=== PATIENT | male | born 1990 | race Caucasian/White ===

== ENCOUNTER 2019-12-01 11:23 | Inpatient (IN) | payer SELFPAY ==
[~2019-12-01] VITALS: Ht 188 cm; Wt 81.9 kg
[2019-12-01] MEDS ORDERED: IV NORMAL SALINE 1000ML BAG 1,000 ML IV SCH (11:30)
--- NOTE | 2019-12-01 11:32 | PHYS DOC ---
Past Medical History Past Medical History bipolar, brain glioma Smoking Status: Current Every Day Smoker Drug Use: None (IN RECOVERY FOR 2 YEARS) General Adult EDM: Chief Complaint: COMBATIVE, AGITATED HPI: HPI: Patient is a 29 year old male who arrives via EMS with a chief complaint of combativeness. Patient was causing a disturbance outside of the [employer] and was in police custody and became acting erratic and combative. Patient had a break in his hand. Patient had to be restrained by police and put in handcuffs. History and physical are limited to due to altered mental status. Patient is oriented x3 but has a very bizarre affect and will answer questions appropriately and is agitated. Patient was tased with a lakia in the right buttocks that was removed prior to arrival. Review of Systems: Review of Systems: Constitutional: Denies fever or chills. [] Eyes: Denies change in visual acuity. [] HENT: Denies nasal congestion or sore throat. [] Respiratory: Denies cough or shortness of breath. [] Cardiovascular: Denies chest pain or edema. [] GI: Denies abdominal pain, nausea, vomiting, bloody stools or diarrhea. [] : Denies dysuria. [] Musculoskeletal: Complains of diffuse myalgias Integument: Denies rash. [] Neurologic: Denies headache, focal weakness or sensory changes. [] Lymphatic: Denies swollen glands. [] Psychiatric: Complains of anxiety and agitation Review of systems limited due to altered mental status and poor cooperation Heart Score: Risk Factors: Risk Factors: DM, Current or recent (<one month) smoker, HTN, HLP, family history of CAD, obesity. Risk Scores: Score 0 - 3: 2.5% MACE over next 6 weeks - Discharge Home Score 4 - 6: 20.3% MACE over next 6 weeks - Admit for Clinical Observation Score 7 - 10: 72.7% MACE over next 6 weeks - Early Invasive Strategies Physical Exam: PE: Constitutional: In handcuffs, agitated, diaphoretic HENT: Normocephalic, atraumatic, bilateral external ears normal, oropharynx moist, no oral exudates, nose normal. [] Eyes: Pupils 6 mm but reactive Neck: Normal range of motion, no tenderness, supple, no stridor. [] Cardiovascular: Tachycardic, peripheral pulses intact Lungs & Thorax: Bilateral breath sounds clear to auscultation [] Abdomen: soft, no tenderness, no masses, no pulsatile masses. [] Skin: Warm, dry, no erythema, no rash. [] Back: No tenderness, no CVA tenderness. [] Extremities: Scattered abrasions without significant bruising or swelling. Neurologic: Alert and oriented X 3, normal motor function, normal sensory function, no focal deficits noted. [] Psychologic: Agitated, poor insight, anxious Current Patient Data: Labs: Laboratory Tests Test 12/01/19 11:50 White Blood Count 6.9 x10^3/uL Red Blood Count 4.67 x10^6/uL Hemoglobin 15.3 g/dL Hematocrit 43.0 % Mean Corpuscular Volume 92 fL Mean Corpuscular Hemoglobin 33 pg Mean Corpuscular Hemoglobin Concent 36 g/dL Red Cell Distribution Width 13.0 % Platelet Count 239 x10^3/uL Neutrophils (%) (Auto) 58 % Lymphocytes (%) (Auto) 30 % Monocytes (%) (Auto) 10 % Eosinophils (%) (Auto) 2 % Basophils (%) (Auto) 1 % Neutrophils # (Auto) 4.0 x10^3/uL Lymphocytes # (Auto) 2.1 x10^3/uL Monocytes # (Auto) 0.7 x10^3/uL Eosinophils # (Auto) 0.1 x10^3/uL Basophils # (Auto) 0.0 x10^3/uL Sodium Level 143 mmol/L Potassium Level 3.7 mmol/L Chloride Level 103 mmol/L Carbon Dioxide Level 27 mmol/L Anion Gap 13 Blood Urea Nitrogen 17 mg/dL Creatinine 1.5 mg/dL Estimated GFR (Cockcroft-Gault) 55.0 BUN/Creatinine Ratio 11 Glucose Level 94 mg/dL Calcium Level 9.1 mg/dL Total Bilirubin 0.5 mg/dL Aspartate Amino Transf (AST/SGOT) 35 U/L Alanine Aminotransferase (ALT/SGPT) 24 U/L Alkaline Phosphatase 62 U/L Creatine Kinase 836 U/L Total Protein 7.9 g/dL Albumin 4.5 g/dL Albumin/Globulin Ratio 1.3 Salicylates Level 3.0 mg/dL Salicylate Last Dose Date Unknown Salicylate Last Dose Time Unknown Acetaminophen Level < 2 mcg/ml Acetaminophen Last Dose Date Unknown Acetaminophen Last Dose Time Unknown Ethyl Alcohol Level < 10 mg/dL Current Medications Medications (Trade) Dose Ordered Sig/Trinh Route PRN Reason Start Time Stop Time Status Last Admin Dose Admin Sodium Chloride 1,000 ml @ 1,000 mls/hr Q1H IV 12/01/19 11:30 12/01/19 12:29 DC 12/01/19 11:58 Haloperidol Lactate (Haldol Inj) 5 mg STK-MED ONCE .ROUTE 12/01/19 11:43 12/01/19 11:43 DC Lorazepam (Ativan Inj) 2 mg STK-MED ONCE .ROUTE 12/01/19 11:43 12/01/19 11:43 DC Diphenhydramine HCl (Benadryl) 50 mg 1X ONCE IM 12/01/19 11:45 12/01/19 12:08 DC 12/01/19 11:55 Lorazepam (Ativan Inj) 2 mg 1X ONCE IM 12/01/19 11:45 12/01/19 12:08 DC 12/01/19 11:55 Haloperidol Lactate (Haldol Inj) 5 mg 1X ONCE IM 12/01/19 11:45 12/01/19 12:08 DC 12/01/19 11:55 Diphenhydramine HCl (Benadryl) 50 mg STK-MED ONCE .ROUTE 12/01/19 11:43 12/01/19 11:44 DC Sodium Chloride 1,000 ml @ 1,000 mls/hr 1X ONCE IV 12/01/19 13:15 12/01/19 14:14 12/01/19 13:15 EKG: EKG: [] EKG interpreted by me normal sinus rhythm with a rate of 83 normal axis normal intervals normal ST segments Radiology/Procedures: Radiology/Procedures: [][facility] [address] [place], [place] [id number] IMAGING REPORT Signed PATIENT: DEVORA HERNANDEZ ACCOUNT: [id number] : 1990 LOCATION: ER AGE: 29 SEX: M EXAM STATUS: PRE ER ORD. PHYSICIAN: RAMU FORTUNE MD REASON: AMS PROCEDURE: CT HEAD WO CONTRAST CT HEAD WO CONTRAST History: Reason: AMS / Spl. Instructions: / History: Comparison: None. Technique: Noncontrast CT imaging was performed of the head. Exposure: One or more of the following individualized dose reduction techniques were utilized for this examination: 1. Automated exposure control 2. Adjustment of the mA and/or kV according to patient size 3. Use of iterative reconstruction technique. Findings: Wedge-shaped hypoattenuation within the left frontal lobe. No acute hemorrhage. No significant mass effect. No hydrocephalus. Imaged orbits are unremarkable. Imaged paranasal sinuses and mastoid air cells are clear. No acute calvarial fracture. Impression: 1. Left frontal lobe wedge-shaped hypoattenuation, may represent cytotoxic edema and related to subacute infarct although a component of vasogenic edema is possible. Recommend brain MRI with and without contrast to exclude underlying lesion. Electronically signed by: Meño Man DO (12/01/2019 1:00 PM) [id number] DICTATED and SIGNED BY: MEÑO MAN DO DATE: 12/01/19 1300 Course & Med Decision Making: Course & Med Decision Making Pertinent Labs and Imaging studies reviewed. (See chart for details) [1140 patient starting to escalate. Code alejo activated. Tried to verbally de- escalate without success. Patient will be medically treated for agitation and physically restrained.] Reassessed at 12:00. Patient resting calmly. After medication. Catheter was placed and placed in the bladder no urine output was obtained. Patient does have rhabdomyolysis. A second liter fluid is been given. Patient on reassessment was asked about his brain tumor. Patient says he has a glioma and is not getting treatment for it. When asked what was he says is in the left frontal area. This matches with the current head CT. I initially discussed with the psychiatric assessment team but I think the fact that patient is not making urine I think he needs IV fluids overnight. He may need MRI and neuro consult as well. Discussed the case with Dr. Lee who admit the patient. I discussed with the patient's mother Nitza at [phone] patient's condition and care. She states that she sees him every couple days and he has been deteriorating. He is got history of bipolar and schizoaffective disorder and thinks is been off his meds for couple days. She also states that he has had a glioma for several years and wants saw a doctor at [place] but is been behind on scans for last year or so. I informed him that we will be admitting him to the hospital medically and give him fluids and he may need a neuro consult and MRI before he is cleared for psychiatric admission. Ling Disclaimer: Ling Disclaimer: This electronic medical record was generated, in whole or in part, using a voice recognition dictation system. Departure Departure Impression: Primary Impression: Altered mental status Additional Impressions: Rhabdomyolysis Glioma of brain Agitation Disposition: ADMITTED INPATIENT Admitting Physician: VIKI ([facility]) Condition: GUARDED Justicifation of Admission Dx: Justifications for Admission: Justification of Admission Dx: Yes RAMU FORTUNE MD Dec 01, 2019 11:32
[2019-12-01] MEDS ORDERED: HALOPERIDOL LACTATE 5 MG/ML VIAL. ONE (11:43)
[2019-12-01] MEDS ORDERED: diphenhydrAMINE 50 MG/ML VIAL ONE (11:43)
[2019-12-01] MEDS ORDERED: diphenhydrAMINE 50 MG/ML VIAL IM ONE (11:45)
[2019-12-01] MEDS ORDERED: HALOPERIDOL LACTATE 5 MG/ML VIAL. IM ONE (11:45)
[2019-12-01 12:01] LABS: BASO % 1 % (0-3); EOS # 0.1 x10^3/uL (0.0-0.7); EOS % 2 % (0-3); HEMOGLOBIN 15.3 g/dL (13.0-17.5); LYMPH # 2.1 x10^3/uL (1.0-4.8); LYMPH % 30 % (24-48); MEAN CORPUSCULAR HEMOGLOBIN 33 pg (25-35); MEAN CORPUSCULAR HGB CONC 36 g/dL (31-37); MEAN CORPUSCULAR VOLUME 92 fL (79-100); MONO # 0.7 x10^3/uL (0.0-1.1); MONO % 10 % (0-9); NEUT % 58 % (31-73); PLATELET COUNT 239 x10^3/uL (140-400); RED BLOOD COUNT 4.67 x10^6/uL (4.30-5.70); WHITE BLOOD COUNT 6.9 x10^3/uL (4.0-11.0)
[2019-12-01 12:14] LABS: CALCIUM 9.1 mg/dL (8.5-10.1); CREATININE 1.5 mg/dL (0.7-1.3); POTASSIUM 3.7 mmol/L (3.5-5.1)
[2019-12-01 12:18] LABS: ALBUMIN 4.5 g/dL (3.4-5.0); ALBUMIN/GLOBULIN RATIO 1.3 (1.0-1.7); TOTAL BILIRUBIN 0.5 mg/dL (0.2-1.0); TOTAL PROTEIN 7.9 g/dL (6.4-8.2)
[2019-12-01 12:27] LABS: ACETAMIN < 2 mcg/ml (10-30)
[2019-12-01 12:28] LABS: ETHANOL < 10 mg/dL (0-10)
--- NOTE | 2019-12-01 13:04 | RAD ---
CT HEAD WO CONTRAST History: Reason: AMS / Spl. Instructions: / History: Comparison: None. Technique: Noncontrast CT imaging was performed of the head. Exposure: One or more of the following individualized dose reduction techniques were utilized for this examination: 1. Automated exposure control 2. Adjustment of the mA and/or kV according to patient size 3. Use of iterative reconstruction technique. Findings: Wedge-shaped hypoattenuation within the left frontal lobe. No acute hemorrhage. No significant mass effect. No hydrocephalus. Imaged orbits are unremarkable. Imaged paranasal sinuses and mastoid air cells are clear. No acute calvarial fracture. Impression: 1. Left frontal lobe wedge-shaped hypoattenuation, may represent cytotoxic edema and related to subacute infarct although a component of vasogenic edema is possible. Recommend brain MRI with and without contrast to exclude underlying lesion. Electronically signed by: Meño Man DO (12/01/2019 1:00 PM) [id number]
[2019-12-01] MEDS ORDERED: IV NORMAL SALINE 1000ML BAG 1,000 ML IV ONE (13:15)
--- NOTE | 2019-12-01 13:29 | PDOC1 ---
History and Physical Date of Admission Date of Admission DATE: 12/01/19 TIME: 13:27 Identification/Chief Complaint Chief Complaint SEEN I9N ER WITH chief complaint of combativeness. Patient was causing a disturbance outside of the [employer] in police custody and became acting erratic and combative. Patient had to be restrained by police and put in handcuffs. History and physical are limited to due to altered mental status. Patient is oriented x3 but has a very bizarre affect and will answer questions appropriately and is agitated. Patient was tased with a lakia in the right buttocks that was removed prior to arrival. CT HEAD CONCERNING FOR Glioma , neurology and psych consulted Past Medical History Past Medical History Past Medical History Past Medical History Smoking Status: Current Every Day Smoker Drug Use: None (IN RECOVERY FOR 2 YEARS) Pulmonary: No pertinent hx Psych: Anxiety, Addictions, Psychosis Family History Family History: Hypertension Social History Smoke: No ALCOHOL: none Drugs: None Current Medications Current Medications Current Medications Sodium Chloride 1,000 ml @ 1,000 mls/hr Q1H IV Last administered on 12/01/19at 11:58; Start 12/01/19 at 11:30; Stop 12/01/19 at 12:29; Status DC Haloperidol Lactate (Haldol Inj) 5 mg STK-MED ONCE .ROUTE ; Start 12/01/19 at 11:43; Stop 12/01/19 at 11:43; Status DC Lorazepam (Ativan Inj) 2 mg STK-MED ONCE .ROUTE ; Start 12/01/19 at 11:43; Stop 12/01/19 at 11:43; Status DC Diphenhydramine HCl (Benadryl) 50 mg 1X ONCE IM Last administered on 12/01/19at 11:55; Start 12/01/19 at 11:45; Stop 12/01/19 at 12:08; Status DC Lorazepam (Ativan Inj) 2 mg 1X ONCE IM Last administered on 12/01/19at 11:55; Start 12/01/19 at 11:45; Stop 12/01/19 at 12:08; Status DC Haloperidol Lactate (Haldol Inj) 5 mg 1X ONCE IM Last administered on 12/01/19at 11:55; Start 12/01/19 at 11:45; Stop 12/01/19 at 12:08; Status DC Diphenhydramine HCl (Benadryl) 50 mg STK-MED ONCE .ROUTE ; Start 12/01/19 at 11:43; Stop 12/01/19 at 11:44; Status DC Sodium Chloride 1,000 ml @ 1,000 mls/hr 1X ONCE IV Last administered on 12/01/19at 13:15; Start 12/01/19 at 13:15; Stop 12/01/19 at 14:14 Allergies Allergies: Coded Allergies: No Known Drug Allergies (Unverified , 12/01/19) ROS Review of System Constitutional: Denies fever or chills. [] Eyes: Denies change in visual acuity. [] HENT: Denies nasal congestion or sore throat. [] Respiratory: Denies cough or shortness of breath. [] Cardiovascular: Denies chest pain or edema. [] GI: Denies abdominal pain, nausea, vomiting, bloody stools or diarrhea. [] : Denies dysuria. [] Musculoskeletal: Complains of diffuse myalgias Integument: Denies rash. [] Neurologic: Denies headache, focal weakness or sensory changes. [] Lymphatic: Denies swollen glands. [] Psychiatric: notes anxiety and agitation Review of systems limited due to altered mental status and poor cooperation Hematological and Lymphatic: No: Bleeding Problems, Blood Clots, Blood Transfusions, Brusing, Night Sweats, Pallor, Swollen Lymph Nodes, Other Respiratory: No: Cough, Hemoptysis, Orthopnea, Pleuritic Pain, Shortness of breath, SOB with excertion, Sputum Changes, Stridor, Tachypnea, Wheezing, Other Cardiovascular: No Chest Pain, No Palpitations, No Orthopnea, No Paroxysmal Noc. Dyspnea, No Edema, No Lt Headedness, No Other Neurological: Yes Behavorial Changes, Yes Confusion Skin: No Dry Skin, No Eczema, No Hair Changes, No Lumps, No Mole Changes, No Mottling, No Nail Changes, No Pruritus, No Rash, No Skin Lesion Changes, No Other, No Acne Physical Exam Physical Exam Constitutional: In handcuffs, agitated, diaphoretic HENT: Normocephalic, atraumatic, bilateral external ears normal, oropharynx moist, no oral exudates, nose normal. [] Eyes: Pupils 6 mm but reactive Neck: Normal range of motion, no tenderness, supple, no stridor. [] Cardiovascular: Tachycardic, peripheral pulses intact Lungs & Thorax: Bilateral breath sounds clear to auscultation [] Abdomen: soft, no tenderness, no masses, no pulsatile masses. [] Skin: Warm, dry, no erythema, no rash. [] Back: No tenderness, no CVA tenderness. [] Extremities: Scattered abrasions without significant bruising or swelling. Neurologic: Alert and oriented X 3, normal motor function, normal sensory function, no focal deficits noted. [] Psychologic: Agitated, poor insight, anxious General: Alert, Cooperative, No acute distress HEENT: Atraumatic Lungs: Normal air movement Heart: RRR Abdomen: Normal bowel sounds, Soft, No tenderness Rectal Exam: not examined PELVIC: Examination not indicated Extremities: No cyanosis, No edema Skin: No significant lesion Neuro: Cranial nerves 3-12 NL Vitals Vitals Vital Signs Date Time Temp Pulse Resp B/P (MAP) Pulse Ox O2 Delivery O2 Flow Rate FiO2 12/01/19 11:23 100.2 97 21 192/79 (116) 97 Room Air 100.2 Labs Labs Laboratory Tests Test 12/01/19 11:50 White Blood Count 6.9 x10^3/uL (4.0-11.0) Red Blood Count 4.67 x10^6/uL (4.30-5.70) Hemoglobin 15.3 g/dL (13.0-17.5) Hematocrit 43.0 % (39.0-53.0) Mean Corpuscular Volume 92 fL (79-100) Mean Corpuscular Hemoglobin 33 pg (25-35) Mean Corpuscular Hemoglobin Concent 36 g/dL (31-37) Red Cell Distribution Width 13.0 % (11.5-14.5) Platelet Count 239 x10^3/uL (140-400) Neutrophils (%) (Auto) 58 % (31-73) Lymphocytes (%) (Auto) 30 % (24-48) Monocytes (%) (Auto) 10 % (0-9) Eosinophils (%) (Auto) 2 % (0-3) Basophils (%) (Auto) 1 % (0-3) Neutrophils # (Auto) 4.0 x10^3/uL (1.8-7.7) Lymphocytes # (Auto) 2.1 x10^3/uL (1.0-4.8) Monocytes # (Auto) 0.7 x10^3/uL (0.0-1.1) Eosinophils # (Auto) 0.1 x10^3/uL (0.0-0.7) Basophils # (Auto) 0.0 x10^3/uL (0.0-0.2) Sodium Level 143 mmol/L (136-145) Potassium Level 3.7 mmol/L (3.5-5.1) Chloride Level 103 mmol/L (98-107) Carbon Dioxide Level 27 mmol/L (21-32) Anion Gap 13 (6-14) Blood Urea Nitrogen 17 mg/dL (8-26) Creatinine 1.5 mg/dL (0.7-1.3) Estimated GFR (Cockcroft-Gault) 55.0 BUN/Creatinine Ratio 11 (6-20) Glucose Level 94 mg/dL (70-99) Calcium Level 9.1 mg/dL (8.5-10.1) Total Bilirubin 0.5 mg/dL (0.2-1.0) Aspartate Amino Transf (AST/SGOT) 35 U/L (15-37) Alanine Aminotransferase (ALT/SGPT) 24 U/L (16-63) Alkaline Phosphatase 62 U/L (46-116) Creatine Kinase 836 U/L (39-308) Total Protein 7.9 g/dL (6.4-8.2) Albumin 4.5 g/dL (3.4-5.0) Albumin/Globulin Ratio 1.3 (1.0-1.7) Salicylates Level 3.0 mg/dL (2.8-20.0) Salicylate Last Dose Date Unknown Salicylate Last Dose Time Unknown Acetaminophen Level < 2 mcg/ml (10-30) Acetaminophen Last Dose Date Unknown Acetaminophen Last Dose Time Unknown Ethyl Alcohol Level < 10 mg/dL (0-10) Laboratory Tests Test 12/01/19 11:50 White Blood Count 6.9 x10^3/uL (4.0-11.0) Red Blood Count 4.67 x10^6/uL (4.30-5.70) Hemoglobin 15.3 g/dL (13.0-17.5) Hematocrit 43.0 % (39.0-53.0) Mean Corpuscular Volume 92 fL (79-100) Mean Corpuscular Hemoglobin 33 pg (25-35) Mean Corpuscular Hemoglobin Concent 36 g/dL (31-37) Red Cell Distribution Width 13.0 % (11.5-14.5) Platelet Count 239 x10^3/uL (140-400) Neutrophils (%) (Auto) 58 % (31-73) Lymphocytes (%) (Auto) 30 % (24-48) Monocytes (%) (Auto) 10 % (0-9) Eosinophils (%) (Auto) 2 % (0-3) Basophils (%) (Auto) 1 % (0-3) Neutrophils # (Auto) 4.0 x10^3/uL (1.8-7.7) Lymphocytes # (Auto) 2.1 x10^3/uL (1.0-4.8) Monocytes # (Auto) 0.7 x10^3/uL (0.0-1.1) Eosinophils # (Auto) 0.1 x10^3/uL (0.0-0.7) Basophils # (Auto) 0.0 x10^3/uL (0.0-0.2) Sodium Level 143 mmol/L (136-145) Potassium Level 3.7 mmol/L (3.5-5.1) Chloride Level 103 mmol/L (98-107) Carbon Dioxide Level 27 mmol/L (21-32) Anion Gap 13 (6-14) Blood Urea Nitrogen 17 mg/dL (8-26) Creatinine 1.5 mg/dL (0.7-1.3) Estimated GFR (Cockcroft-Gault) 55.0 BUN/Creatinine Ratio 11 (6-20) Glucose Level 94 mg/dL (70-99) Calcium Level 9.1 mg/dL (8.5-10.1) Total Bilirubin 0.5 mg/dL (0.2-1.0) Aspartate Amino Transf (AST/SGOT) 35 U/L (15-37) Alanine Aminotransferase (ALT/SGPT) 24 U/L (16-63) Alkaline Phosphatase 62 U/L (46-116) Creatine Kinase 836 U/L (39-308) Total Protein 7.9 g/dL (6.4-8.2) Albumin 4.5 g/dL (3.4-5.0) Albumin/Globulin Ratio 1.3 (1.0-1.7) Salicylates Level 3.0 mg/dL (2.8-20.0) Salicylate Last Dose Date Unknown Salicylate Last Dose Time Unknown Acetaminophen Level < 2 mcg/ml (10-30) Acetaminophen Last Dose Date Unknown Acetaminophen Last Dose Time Unknown Ethyl Alcohol Level < 10 mg/dL (0-10) Images Images PATIENT: DEVORA HERNANDEZ ACCOUNT: [id number] : 1990 LOCATION: ER AGE: 29 SEX: M EXAM STATUS: PRE ER ORD. PHYSICIAN: RAMU FORTUNE MD REASON: AMS PROCEDURE: CT HEAD WO CONTRAST CT HEAD WO CONTRAST History: Reason: AMS / Spl. Instructions: / History: Comparison: None. Technique: Noncontrast CT imaging was performed of the head. Exposure: One or more of the following individualized dose reduction techniques were utilized for this examination: 1. Automated exposure control 2. Adjustment of the mA and/or kV according to patient size 3. Use of iterative reconstruction technique. Findings: Wedge-shaped hypoattenuation within the left frontal lobe. No acute hemorrhage. No significant mass effect. No hydrocephalus. Imaged orbits are unremarkable. Imaged paranasal sinuses and mastoid air cells are clear. No acute calvarial fracture. Impression: 1. Left frontal lobe wedge-shaped hypoattenuation, may represent cytotoxic edema and related to subacute infarct although a component of vasogenic edema is possible. Recommend brain MRI with and without contrast to exclude underlying lesion. Electronically signed by: Meño Toledo DO (12/01/2019 1:00 PM) [id number] DICTATED and SIGNED BY: MEÑO TOLEDO DO DATE: 12/01/19 1300 VTE Prophylaxis Ordered VTE Prophylaxis Devices: Yes VTE Pharmacological Prophylaxi: Yes Assessment/Plan Assessment/Plan Impression: 1. Altered mental status, acute 2. Left frontal lobe wedge-shaped hypoattenuation, may represent cytotoxic edema and related to subacute infarct although a component of vasogenic edema is possible. Recommend brain MRI with and without contrast to exclude underlying lesion. 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 TITI 5. Psychomotor agitation 6. POST [employer] CPK plan admit neurology consult Nephrology consult iv fluid support psych consult dvt prophylaxis FOLLOW CPK, TROPONIN I need old records 76 min pt exam, chart review, > 50% of time spent with exam, chart review, pt care coordination Justicifation of Admission Dx: Justifications for Admission: Justification of Admission Dx: Yes Sepsis: Altered Mental Status NIR HERRMANN MD Dec 01, 2019 13:29
[2019-12-01] MEDS ORDERED: ONDANSETRON PF 4 MG/2 ML VIAL. IV PRN ×2 (13:30→15:30)
[2019-12-01 14:59] VITALS: BP 127/61
[2019-12-01] MEDS ORDERED: guaiFENesin ORAL 200 MG/10 ML LIQUID. PO PRN (15:30)
[2019-12-01] MEDS ORDERED: MAG HYDROX/ALUMINUM HYD/SIMETH 30 ML ORAL.SUSP PO PRN (15:30)
[2019-12-01] MEDS ORDERED: cloNIDine HCL 0.1 MG TABLET PO PRN (15:30)
[2019-12-01] MEDS ORDERED: ACETAMINOPHEN 650 MG SUPP.RECT. PR PRN (15:30)
[2019-12-01] MEDS ORDERED: 0.9 % SODIUM CHLORIDE 10 ML DISP.SYRIN. IV PRN (15:30)
[2019-12-01] MEDS ORDERED: SODIUM PHOSPHATES 19/7GM 133 ML ENEMA. PR PRN (15:30)
[2019-12-01] MEDS ORDERED: DOCUSATE SODIUM 100 MG CAPSULE. PO PRN (15:30)
[2019-12-01] MEDS ORDERED: ACETAMINOPHEN 325 MG TABLET. PO PRN (15:30)
[2019-12-01] MEDS ORDERED: ALBUTEROL SULFATE 2.5 MG/3 ML NEBU. NEB PRN (15:30)
--- NOTE | 2019-12-01 15:52 | NUR ---
NERI following. Discussed with RN. NERI spoke with Fide with PAT, she was unable to do an assessment of pt in the ER because pt was being tased, was not oriented and had been given haldol. PAT will come to see pt again tomorrow morning (12/02/2019). RN notified.
[2019-12-01] MEDS: IV NORMAL SALINE 1000ML BAG 1,000 ML IV SCH (15:57)
[2019-12-01] MEDS: ENOXAPARIN 40 MG/0.4 ML SYRINGE. SQ SCH (16:40)
--- NOTE | 2019-12-01 16:44 | RAD ---
INDICATION: Reason: agitation, AMS 410 / Spl. Instructions: / History: COMPARISON: None. FINDINGS: Single view of chest obtained. No focal airspace consolidation. Cardiac silhouette is unremarkable. No gross osseous destructive lesion. IMPRESSION: * No focal airspace consolidation or edema. Electronically signed by: Haider Larios MD (12/01/2019 4:41 PM) [id number]
--- NOTE | 2019-12-01 18:37 | NUR ---
Pt informed me in Jan 2018, he was diagnosed with glioma at [facility], and to be monitored. Testicular surgery as a child. Pt stated he was "tripping earlier probably." Pt admits smoking weed, menthols, and vaping.
[2019-12-01 19:04] VITALS: BP 114/61
--- NOTE | 2019-12-01 19:15 | NUR ---
Nitza Salazar is patient's mom [phone].
[2019-12-01 23:30] VITALS: BP 111/59
[2019-12-02] VITALS (7 sets, daily range): BP systolic 121–131; BP diastolic 55–84
[2019-12-02] MEDS: IV NORMAL SALINE 1000ML BAG 1,000 ML IV SCH ×3 (01:40→22:10)
[2019-12-02 04:41] LABS: BILIRUBIN,URINE SMALL (NEG); CLARITY,URINE CLEAR; COLOR,URINE AMBER; NITRITE,URINE NEGATIVE (NEG); PROTEIN,URINE NEGATIVE (NEG-TRACE)
[2019-12-02 04:49] LABS: BARBITURATES NEG (NEG); BENZODIAZEPINES NEG (NEG); CANNABINOIDS POS (NEG); COCAINE NEG (NEG); METHADONE NEG (NEG); OPIATES NEG (NEG); PHENCYCLIDINE NEG (NEG)
[2019-12-02 04:50] LABS: BACTERIA,URINE 0 /HPF (0-FEW); RBC,URINE OCC /HPF (0-2); SQUAMOUS EPITHELIAL CELL,UR OCC /LPF; WBC,URINE 20-40 /HPF (0-4)
[2019-12-02 04:51] LABS: HYALINE CASTS, URINE FEW /HPF
[2019-12-02 04:53] LABS: AMPHETAMINE/METHAMPHETAMINE NEG (NEG)
[2019-12-02 05:26] LABS: BASO % 0 % (0-3); EOS # 0.2 x10^3/uL (0.0-0.7); EOS % 3 % (0-3); HEMATOCRIT 38.1 % (39.0-53.0); HEMOGLOBIN 13.1 g/dL (13.0-17.5); LYMPH # 2.5 x10^3/uL (1.0-4.8); LYMPH % 43 % (24-48); MEAN CORPUSCULAR HEMOGLOBIN 32 pg (25-35); MEAN CORPUSCULAR HGB CONC 34 g/dL (31-37); MEAN CORPUSCULAR VOLUME 94 fL (79-100); MONO # 0.5 x10^3/uL (0.0-1.1); MONO % 9 % (0-9); NEUT # 2.7 x10^3/uL (1.8-7.7); NEUT % 45 % (31-73); PLATELET COUNT 184 x10^3/uL (140-400); RED BLOOD COUNT 4.06 x10^6/uL (4.30-5.70); RED CELL DISTRIBUTION WIDTH 13.2 % (11.5-14.5)
[2019-12-02 05:52] LABS: ALBUMIN 3.2 g/dL (3.4-5.0); ALBUMIN/GLOBULIN RATIO 1.2 (1.0-1.7); GFR 87.7; POTASSIUM 3.7 mmol/L (3.5-5.1); TOTAL BILIRUBIN 0.3 mg/dL (0.2-1.0); TOTAL PROTEIN 5.8 g/dL (6.4-8.2)
[2019-12-02] MEDS ORDERED: KETOROLAC 30 MG/ML VIAL. IVP ONE (07:30)
[2019-12-02] MEDS: LORazepam 0.5 MG TABLET PO PRN ×3 (08:34→19:59)
--- NOTE | 2019-12-02 09:26 | PDOC ---
PROGRESS NOTES Chief Complaint Chief Complaint 1. Altered mental status, acute, bipolar decompensation secondary to medication non adherence 2. Left frontal lobe wedge-shaped hypoattenuation, may represent cytotoxic edema and related to subacute infarct although a component of vasogenic edema is possible. Recommend brain MRI with and without contrast to exclude underlying lesion. 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 TITI 5. Psychomotor agitation 6. POST tazer inc CPK Plan: follow recommendations from investigations consultant patient has been diagnosed with bipolar disorder and ran out of his meds NSAIDs and muscle relaxants to treat pain and discomfort from fighting with the police. further recommendations based on clinical course follow uirne output regular diet History of Present Illness History of Present Illness Calm during my visit, all his cocnerns addressed to the best of my abilities. Ran out of his bipolar meds about a week ago, he has had similar episodes in the past, denies marihuana abuse despite positive UDP Vitals Vitals Vital Signs Date Time Temp Pulse Resp B/P (MAP) Pulse Ox O2 Delivery O2 Flow Rate FiO2 12/02/19 08:00 Room Air 12/02/19 07:21 98.2 55 18 127/56 (79) 96 98.2 Physical Exam General: Alert, Cooperative, No acute distress Heart: Regular rate, Normal S1, Normal S2 Lungs: Clear Abdomen: Normal bowel sounds, Soft, No tenderness Extremities: No cyanosis, No edema Skin: No significant lesion Labs LABS Laboratory Tests Test 12/01/19 11:50 12/02/19 04:00 12/02/19 05:00 White Blood Count 6.9 x10^3/uL (4.0-11.0) 6.0 x10^3/uL (4.0-11.0) Red Blood Count 4.67 x10^6/uL (4.30-5.70) 4.06 x10^6/uL (4.30-5.70) Hemoglobin 15.3 g/dL (13.0-17.5) 13.1 g/dL (13.0-17.5) Hematocrit 43.0 % (39.0-53.0) 38.1 % (39.0-53.0) Mean Corpuscular Volume 92 fL (79-100) 94 fL (79-100) Mean Corpuscular Hemoglobin 33 pg (25-35) 32 pg (25-35) Mean Corpuscular Hemoglobin Concent 36 g/dL (31-37) 34 g/dL (31-37) Red Cell Distribution Width 13.0 % (11.5-14.5) 13.2 % (11.5-14.5) Platelet Count 239 x10^3/uL (140-400) 184 x10^3/uL (140-400) Neutrophils (%) (Auto) 58 % (31-73) 45 % (31-73) Lymphocytes (%) (Auto) 30 % (24-48) 43 % (24-48) Monocytes (%) (Auto) 10 % (0-9) 9 % (0-9) Eosinophils (%) (Auto) 2 % (0-3) 3 % (0-3) Basophils (%) (Auto) 1 % (0-3) 0 % (0-3) Neutrophils # (Auto) 4.0 x10^3/uL (1.8-7.7) 2.7 x10^3/uL (1.8-7.7) Lymphocytes # (Auto) 2.1 x10^3/uL (1.0-4.8) 2.5 x10^3/uL (1.0-4.8) Monocytes # (Auto) 0.7 x10^3/uL (0.0-1.1) 0.5 x10^3/uL (0.0-1.1) Eosinophils # (Auto) 0.1 x10^3/uL (0.0-0.7) 0.2 x10^3/uL (0.0-0.7) Basophils # (Auto) 0.0 x10^3/uL (0.0-0.2) 0.0 x10^3/uL (0.0-0.2) Sodium Level 143 mmol/L (136-145) 142 mmol/L (136-145) Potassium Level 3.7 mmol/L (3.5-5.1) 3.7 mmol/L (3.5-5.1) Chloride Level 103 mmol/L (98-107) 107 mmol/L (98-107) Carbon Dioxide Level 27 mmol/L (21-32) 27 mmol/L (21-32) Anion Gap 13 (6-14) 8 (6-14) Blood Urea Nitrogen 17 mg/dL (8-26) 15 mg/dL (8-26) Creatinine 1.5 mg/dL (0.7-1.3) 1.0 mg/dL (0.7-1.3) Estimated GFR (Cockcroft-Gault) 55.0 87.7 BUN/Creatinine Ratio 11 (6-20) 15 (6-20) Glucose Level 94 mg/dL (70-99) 97 mg/dL (70-99) Calcium Level 9.1 mg/dL (8.5-10.1) 8.0 mg/dL (8.5-10.1) Total Bilirubin 0.5 mg/dL (0.2-1.0) 0.3 mg/dL (0.2-1.0) Aspartate Amino Transf (AST/SGOT) 35 U/L (15-37) 22 U/L (15-37) Alanine Aminotransferase (ALT/SGPT) 24 U/L (16-63) 18 U/L (16-63) Alkaline Phosphatase 62 U/L (46-116) 49 U/L (46-116) Creatine Kinase 836 U/L (39-308) Troponin I Quantitative < 0.017 ng/mL (0.000-0.055) Total Protein 7.9 g/dL (6.4-8.2) 5.8 g/dL (6.4-8.2) Albumin 4.5 g/dL (3.4-5.0) 3.2 g/dL (3.4-5.0) Albumin/Globulin Ratio 1.3 (1.0-1.7) 1.2 (1.0-1.7) Thyroid Stimulating Hormone (TSH) 1.269 uIU/mL (0.358-3.74) Salicylates Level 3.0 mg/dL (2.8-20.0) Salicylate Last Dose Date Unknown Salicylate Last Dose Time Unknown Acetaminophen Level < 2 mcg/ml (10-30) Acetaminophen Last Dose Date Unknown Acetaminophen Last Dose Time Unknown Ethyl Alcohol Level < 10 mg/dL (0-10) Urine Collection Type Unknown Urine Color Barb Urine Clarity Clear Urine pH 6.0 (<5.0-8.0) Urine Specific [place] >=1.030 (1.000-1.030) Urine Protein Negative mg/dL (NEG-TRACE) Urine Glucose (UA) Negative mg/dL (NEG) Urine Ketones (Stick) Trace mg/dL (NEG) Urine Blood Negative (NEG) Urine Nitrite Negative (NEG) Urine Bilirubin Small (NEG) Urine Urobilinogen Dipstick 1.0 mg/dL (0.2 mg/dL) Urine Leukocyte Esterase Negative (NEG) Urine RBC Occ /HPF (0-2) Urine WBC 20-40 /HPF (0-4) Urine Squamous Epithelial Cells Occ /LPF Urine Bacteria 0 /HPF (0-FEW) Urine Hyaline Casts Few /HPF Urine Mucus Marked /LPF Urine Opiates Screen Neg (NEG) Urine Methadone Screen Neg (NEG) Urine Barbiturates Neg (NEG) Urine Phencyclidine Screen Neg (NEG) Urine Amphetamine/Methamphetamine Neg (NEG) Urine Benzodiazepines Screen Neg (NEG) Urine Cocaine Screen Neg (NEG) Urine Cannabinoids Screen Pos (NEG) Urine Ethyl Alcohol Neg (NEG) Review of Systems Review of Systems pertinent as per hpi otherwise 10 point ROS negative. Assessment and Plan Assessmemt and Plan Problems Medical Problems: (1) Agitation Status: Acute (2) Altered mental status Status: Acute (3) Glioma of brain Status: Acute (4) Rhabdomyolysis Status: Acute Comment Review of Relevant I have reviewed the following items lauryn (where applicable) has been applied. Labs Laboratory Tests Test 12/01/19 11:50 12/02/19 04:00 12/02/19 05:00 White Blood Count 6.9 x10^3/uL (4.0-11.0) 6.0 x10^3/uL (4.0-11.0) Red Blood Count 4.67 x10^6/uL (4.30-5.70) 4.06 x10^6/uL (4.30-5.70) Hemoglobin 15.3 g/dL (13.0-17.5) 13.1 g/dL (13.0-17.5) Hematocrit 43.0 % (39.0-53.0) 38.1 % (39.0-53.0) Mean Corpuscular Volume 92 fL (79-100) 94 fL (79-100) Mean Corpuscular Hemoglobin 33 pg (25-35) 32 pg (25-35) Mean Corpuscular Hemoglobin Concent 36 g/dL (31-37) 34 g/dL (31-37) Red Cell Distribution Width 13.0 % (11.5-14.5) 13.2 % (11.5-14.5) Platelet Count 239 x10^3/uL (140-400) 184 x10^3/uL (140-400) Neutrophils (%) (Auto) 58 % (31-73) 45 % (31-73) Lymphocytes (%) (Auto) 30 % (24-48) 43 % (24-48) Monocytes (%) (Auto) 10 % (0-9) 9 % (0-9) Eosinophils (%) (Auto) 2 % (0-3) 3 % (0-3) Basophils (%) (Auto) 1 % (0-3) 0 % (0-3) Neutrophils # (Auto) 4.0 x10^3/uL (1.8-7.7) 2.7 x10^3/uL (1.8-7.7) Lymphocytes # (Auto) 2.1 x10^3/uL (1.0-4.8) 2.5 x10^3/uL (1.0-4.8) Monocytes # (Auto) 0.7 x10^3/uL (0.0-1.1) 0.5 x10^3/uL (0.0-1.1) Eosinophils # (Auto) 0.1 x10^3/uL (0.0-0.7) 0.2 x10^3/uL (0.0-0.7) Basophils # (Auto) 0.0 x10^3/uL (0.0-0.2) 0.0 x10^3/uL (0.0-0.2) Sodium Level 143 mmol/L (136-145) 142 mmol/L (136-145) Potassium Level 3.7 mmol/L (3.5-5.1) 3.7 mmol/L (3.5-5.1) Chloride Level 103 mmol/L (98-107) 107 mmol/L (98-107) Carbon Dioxide Level 27 mmol/L (21-32) 27 mmol/L (21-32) Anion Gap 13 (6-14) 8 (6-14) Blood Urea Nitrogen 17 mg/dL (8-26) 15 mg/dL (8-26) Creatinine 1.5 mg/dL (0.7-1.3) 1.0 mg/dL (0.7-1.3) Estimated GFR (Cockcroft-Gault) 55.0 87.7 BUN/Creatinine Ratio 11 (6-20) 15 (6-20) Glucose Level 94 mg/dL (70-99) 97 mg/dL (70-99) Calcium Level 9.1 mg/dL (8.5-10.1) 8.0 mg/dL (8.5-10.1) Total Bilirubin 0.5 mg/dL (0.2-1.0) 0.3 mg/dL (0.2-1.0) Aspartate Amino Transf (AST/SGOT) 35 U/L (15-37) 22 U/L (15-37) Alanine Aminotransferase (ALT/SGPT) 24 U/L (16-63) 18 U/L (16-63) Alkaline Phosphatase 62 U/L (46-116) 49 U/L (46-116) Creatine Kinase 836 U/L (39-308) Troponin I Quantitative < 0.017 ng/mL (0.000-0.055) Total Protein 7.9 g/dL (6.4-8.2) 5.8 g/dL (6.4-8.2) Albumin 4.5 g/dL (3.4-5.0) 3.2 g/dL (3.4-5.0) Albumin/Globulin Ratio 1.3 (1.0-1.7) 1.2 (1.0-1.7) Thyroid Stimulating Hormone (TSH) 1.269 uIU/mL (0.358-3.74) Salicylates Level 3.0 mg/dL (2.8-20.0) Salicylate Last Dose Date Unknown Salicylate Last Dose Time Unknown Acetaminophen Level < 2 mcg/ml (10-30) Acetaminophen Last Dose Date Unknown Acetaminophen Last Dose Time Unknown Ethyl Alcohol Level < 10 mg/dL (0-10) Urine Collection Type Unknown Urine Color Barb Urine Clarity Clear Urine pH 6.0 (<5.0-8.0) Urine Specific [place] >=1.030 (1.000-1.030) Urine Protein Negative mg/dL (NEG-TRACE) Urine Glucose (UA) Negative mg/dL (NEG) Urine Ketones (Stick) Trace mg/dL (NEG) Urine Blood Negative (NEG) Urine Nitrite Negative (NEG) Urine Bilirubin Small (NEG) Urine Urobilinogen Dipstick 1.0 mg/dL (0.2 mg/dL) Urine Leukocyte Esterase Negative (NEG) Urine RBC Occ /HPF (0-2) Urine WBC 20-40 /HPF (0-4) Urine Squamous Epithelial Cells Occ /LPF Urine Bacteria 0 /HPF (0-FEW) Urine Hyaline Casts Few /HPF Urine Mucus Marked /LPF Urine Opiates Screen Neg (NEG) Urine Methadone Screen Neg (NEG) Urine Barbiturates Neg (NEG) Urine Phencyclidine Screen Neg (NEG) Urine Amphetamine/Methamphetamine Neg (NEG) Urine Benzodiazepines Screen Neg (NEG) Urine Cocaine Screen Neg (NEG) Urine Cannabinoids Screen Pos (NEG) Urine Ethyl Alcohol Neg (NEG) Laboratory Tests Test 12/01/19 11:50 12/02/19 04:00 12/02/19 05:00 White Blood Count 6.9 x10^3/uL (4.0-11.0) 6.0 x10^3/uL (4.0-11.0) Red Blood Count 4.67 x10^6/uL (4.30-5.70) 4.06 x10^6/uL (4.30-5.70) Hemoglobin 15.3 g/dL (13.0-17.5) 13.1 g/dL (13.0-17.5) Hematocrit 43.0 % (39.0-53.0) 38.1 % (39.0-53.0) Mean Corpuscular Volume 92 fL (79-100) 94 fL (79-100) Mean Corpuscular Hemoglobin 33 pg (25-35) 32 pg (25-35) Mean Corpuscular Hemoglobin Concent 36 g/dL (31-37) 34 g/dL (31-37) Red Cell Distribution Width 13.0 % (11.5-14.5) 13.2 % (11.5-14.5) Platelet Count 239 x10^3/uL (140-400) 184 x10^3/uL (140-400) Neutrophils (%) (Auto) 58 % (31-73) 45 % (31-73) Lymphocytes (%) (Auto) 30 % (24-48) 43 % (24-48) Monocytes (%) (Auto) 10 % (0-9) 9 % (0-9) Eosinophils (%) (Auto) 2 % (0-3) 3 % (0-3) Basophils (%) (Auto) 1 % (0-3) 0 % (0-3) Neutrophils # (Auto) 4.0 x10^3/uL (1.8-7.7) 2.7 x10^3/uL (1.8-7.7) Lymphocytes # (Auto) 2.1 x10^3/uL (1.0-4.8) 2.5 x10^3/uL (1.0-4.8) Monocytes # (Auto) 0.7 x10^3/uL (0.0-1.1) 0.5 x10^3/uL (0.0-1.1) Eosinophils # (Auto) 0.1 x10^3/uL (0.0-0.7) 0.2 x10^3/uL (0.0-0.7) Basophils # (Auto) 0.0 x10^3/uL (0.0-0.2) 0.0 x10^3/uL (0.0-0.2) Sodium Level 143 mmol/L (136-145) 142 mmol/L (136-145) Potassium Level 3.7 mmol/L (3.5-5.1) 3.7 mmol/L (3.5-5.1) Chloride Level 103 mmol/L (98-107) 107 mmol/L (98-107) Carbon Dioxide Level 27 mmol/L (21-32) 27 mmol/L (21-32) Anion Gap 13 (6-14) 8 (6-14) Blood Urea Nitrogen 17 mg/dL (8-26) 15 mg/dL (8-26) Creatinine 1.5 mg/dL (0.7-1.3) 1.0 mg/dL (0.7-1.3) Estimated GFR (Cockcroft-Gault) 55.0 87.7 BUN/Creatinine Ratio 11 (6-20) 15 (6-20) Glucose Level 94 mg/dL (70-99) 97 mg/dL (70-99) Calcium Level 9.1 mg/dL (8.5-10.1) 8.0 mg/dL (8.5-10.1) Total Bilirubin 0.5 mg/dL (0.2-1.0) 0.3 mg/dL (0.2-1.0) Aspartate Amino Transf (AST/SGOT) 35 U/L (15-37) 22 U/L (15-37) Alanine Aminotransferase (ALT/SGPT) 24 U/L (16-63) 18 U/L (16-63) Alkaline Phosphatase 62 U/L (46-116) 49 U/L (46-116) Creatine Kinase 836 U/L (39-308) Troponin I Quantitative < 0.017 ng/mL (0.000-0.055) Total Protein 7.9 g/dL (6.4-8.2) 5.8 g/dL (6.4-8.2) Albumin 4.5 g/dL (3.4-5.0) 3.2 g/dL (3.4-5.0) Albumin/Globulin Ratio 1.3 (1.0-1.7) 1.2 (1.0-1.7) Thyroid Stimulating Hormone (TSH) 1.269 uIU/mL (0.358-3.74) Salicylates Level 3.0 mg/dL (2.8-20.0) Salicylate Last Dose Date Unknown Salicylate Last Dose Time Unknown Acetaminophen Level < 2 mcg/ml (10-30) Acetaminophen Last Dose Date Unknown Acetaminophen Last Dose Time Unknown Ethyl Alcohol Level < 10 mg/dL (0-10) Urine Collection Type Unknown Urine Color Barb Urine Clarity Clear Urine pH 6.0 (<5.0-8.0) Urine Specific [place] >=1.030 (1.000-1.030) Urine Protein Negative mg/dL (NEG-TRACE) Urine Glucose (UA) Negative mg/dL (NEG) Urine Ketones (Stick) Trace mg/dL (NEG) Urine Blood Negative (NEG) Urine Nitrite Negative (NEG) Urine Bilirubin Small (NEG) Urine Urobilinogen Dipstick 1.0 mg/dL (0.2 mg/dL) Urine Leukocyte Esterase Negative (NEG) Urine RBC Occ /HPF (0-2) Urine WBC 20-40 /HPF (0-4) Urine Squamous Epithelial Cells Occ /LPF Urine Bacteria 0 /HPF (0-FEW) Urine Hyaline Casts Few /HPF Urine Mucus Marked /LPF Urine Opiates Screen Neg (NEG) Urine Methadone Screen Neg (NEG) Urine Barbiturates Neg (NEG) Urine Phencyclidine Screen Neg (NEG) Urine Amphetamine/Methamphetamine Neg (NEG) Urine Benzodiazepines Screen Neg (NEG) Urine Cocaine Screen Neg (NEG) Urine Cannabinoids Screen Pos (NEG) Urine Ethyl Alcohol Neg (NEG) Medications Current Medications Sodium Chloride 1,000 ml @ 1,000 mls/hr Q1H IV Last administered on 12/01/19at 11:58; Start 12/01/19 at 11:30; Stop 12/01/19 at 12:29; Status DC Haloperidol Lactate (Haldol Inj) 5 mg STK-MED ONCE .ROUTE ; Start 12/01/19 at 11:43; Stop 12/01/19 at 11:43; Status DC Lorazepam (Ativan Inj) 2 mg STK-MED ONCE .ROUTE ; Start 12/01/19 at 11:43; Stop 12/01/19 at 11:43; Status DC Diphenhydramine HCl (Benadryl) 50 mg 1X ONCE IM Last administered on 12/01/19at 11:55; Start 12/01/19 at 11:45; Stop 12/01/19 at 12:08; Status DC Lorazepam (Ativan Inj) 2 mg 1X ONCE IM Last administered on 12/01/19at 11:55; Start 12/01/19 at 11:45; Stop 12/01/19 at 12:08; Status DC Haloperidol Lactate (Haldol Inj) 5 mg 1X ONCE IM Last administered on 12/01/19at 11:55; Start 12/01/19 at 11:45; Stop 12/01/19 at 12:08; Status DC Diphenhydramine HCl (Benadryl) 50 mg STK-MED ONCE .ROUTE ; Start 12/01/19 at 11:43; Stop 12/01/19 at 11:44; Status DC Sodium Chloride 1,000 ml @ 1,000 mls/hr 1X ONCE IV Last administered on 12/01/19at 13:15; Start 12/01/19 at 13:15; Stop 12/01/19 at 14:14; Status DC Ondansetron HCl (Zofran) 4 mg PRN Q8HRS PRN IV NAUSEA/VOMITING; Start 12/01/19 at 13:30; Stop 12/02/19 at 13:29 Sodium Chloride (Normal Saline Flush) 3 ml QSHIFT PRN IV AFTER MEDS AND BLOOD DRAWS; Start 12/01/19 at 15:30 Sodium Chloride 1,000 ml @ 100 mls/hr Q10H IV Last administered on 12/02/19at 01:40; Start 12/01/19 at 15:18; Stop 12/02/19 at 07:23; Status DC Ondansetron HCl (Zofran) 4 mg PRN Q4HRS PRN IV NAUSEA/VOMITING; Start 12/01/19 at 15:30 Acetaminophen (Tylenol) 650 mg PRN Q4HRS PRN PO TEMP OVER 100.4F OR MILD PAIN; Start 12/01/19 at 15:30 Acetaminophen (Tylenol Supp) 650 mg PRN Q4HRS PRN TN TEMP OVER 100.4F OR MILD PAIN; Start 12/01/19 at 15:30 Al Hydroxide/Mg Hydroxide (Mylanta Plus Xs) 30 ml PRN DAILY PRN PO HEARTBURN / GAS; Start 12/01/19 at 15:30 Clonidine HCl (Catapres) 0.1 mg PRN Q6HRS PRN PO SBP>160 OR DBP>90; Start 12/01/19 at 15:30 Sodium Monofluorophosphate (Fleet Adult) 133 ml PRN DAILY PRN TN CONSTIPATION; Start 12/01/19 at 15:30 Docusate Sodium (Colace) 100 mg PRN BID PRN PO HARD STOOLS; Start 12/01/19 at 15:30 Albuterol Sulfate (Ventolin Neb Soln) 2.5 mg PRN Q4HRS PRN NEB SHORTNESS OF BREATH; Start 12/01/19 at 15:30 Guaifenesin (Robitussin) 200 mg PRN Q4HRS PRN PO COUGH; Start 12/01/19 at 15:30 Lorazepam (Ativan) 0.5 mg PRN Q4HRS PRN PO ANXIETY / AGITATION Last administered on 12/02/19at 08:34; Start 12/01/19 at 15:30 Lorazepam (Ativan Inj) 2 mg PRN Q4HRS PRN IV ANXIETY / AGITATION; Start 12/01/19 at 15:30 Enoxaparin Sodium (Lovenox 40mg Syringe) 40 mg Q24H SQ Last administered on 12/01/19at 16:40; Start 12/01/19 at 15:30 Ketorolac Tromethamine (Toradol 30mg Vial) 30 mg 1X ONCE IVP Last administered on 12/02/19at 08:25; Start 12/02/19 at 07:30; Stop 12/02/19 at 07:31; Status DC Methocarbamol (Robaxin) 1,000 mg PRN Q8HRS PRN PO MUSCLE SPASMS; Start 12/02/19 at 07:30 Vitals/I & O Vital Sign - Last 24 Hours 12/01/19 12/01/19 12/01/19 12/01/19 11:23 11:30 12:00 12:30 Temp 100.2 100.2 Pulse 97 104 80 76 Resp 21 B/P (MAP) 192/79 (116) 192/79 (116) 119/73 (88) 110/75 (87) Pulse Ox 97 93 96 98 O2 Delivery Room Air Room Air Room Air Room Air 12/01/19 12/01/19 12/01/19 12/01/19 13:00 13:30 14:00 14:30 Pulse 66 64 54 62 B/P (MAP) 114/70 (85) 112/74 (87) 105/72 (83) 110/72 (85) Pulse Ox 98 99 97 O2 Delivery Room Air Room Air Room Air Room Air 12/01/19 12/01/19 12/01/19 12/01/19 14:59 19:04 19:49 23:30 Temp 97.1 97.7 97.1 97.7 Pulse 59 65 75 Resp 18 18 18 B/P (MAP) 127/61 (83) 114/61 (78) 111/59 (76) Pulse Ox 96 98 98 O2 Delivery Room Air Room Air Room Air Room Air 12/02/19 12/02/19 12/02/19 03:25 07:21 08:00 Temp 97.9 98.2 97.9 98.2 Pulse 67 55 Resp 16 18 B/P (MAP) 121/55 (77) 127/56 (79) Pulse Ox 98 96 O2 Delivery Room Air Room Air Room Air Intake and Output 12/01/19 12/01/19 12/02/19 15:00 23:00 07:00 Intake Total 2000 ml 200 ml 500 ml Output Total 400 ml Balance 2000 ml 200 ml 100 ml Justicifation of Admission Dx: Justifications for Admission: Justification of Admission Dx: Yes Sepsis: Altered Mental Status EDISON SIMMS MD Dec 02, 2019 09:26
[2019-12-02] MEDS: METHOCARBAMOL 500 MG TABLET PO PRN (10:09)
[2019-12-02] MEDS: NICOTINE 21MG PATCH. TD PRN (14:21)
[2019-12-02] MEDS: ENOXAPARIN 40 MG/0.4 ML SYRINGE. SQ SCH (14:21)
--- NOTE | 2019-12-02 15:03 | PDOC2 ---
CONSULT Date of Consult Date of Consult DATE: 12/02/19 TIME: 14:52 Source Source: Chart review, Patient History of Present Illness Reason for Visit: Pt is 29 yo CM admitted with chief complaint of combativeness. Patient was causing a disturbance outside of the [facility] In police custody and became acting erratic and combative. Patient had to be restrained by police and put in handcuffs. Patient is oriented x3 but has a very bizarre affect and will not answer questions appropriately and is agitated. He states he noticed blood in Urine. Denies any CP or SOB. States he is not sure why he is in the hospital and wants to be dced home now . Per RN his mom reported that he has not been taking his meds. ?Meds Unknown per RN. Pt reports he used to be on Opioid in the past , has not been taking it for at least past 2 years. Denies NSAId use. Denies any f/c. No Abd pain or diarrhea . No N/V Patient was tased with a lakia prior to arrival. Past Medical History Pulmonary: No pertinent hx Psych: Anxiety, Addictions, Psychosis Family History Family History: Hypertension Social History No ALCOHOL: none Drugs: None Current Problem List Problem List Problems Medical Problems: (1) Agitation Status: Acute (2) Altered mental status Status: Acute (3) Glioma of brain Status: Acute (4) Rhabdomyolysis Status: Acute Current Medications Current Medications Current Medications Sodium Chloride 1,000 ml @ 1,000 mls/hr Q1H IV Last administered on 12/01/19at 11:58; Start 12/01/19 at 11:30; Stop 12/01/19 at 12:29; Status DC Haloperidol Lactate (Haldol Inj) 5 mg STK-MED ONCE .ROUTE ; Start 12/01/19 at 11:43; Stop 12/01/19 at 11:43; Status DC Lorazepam (Ativan Inj) 2 mg STK-MED ONCE .ROUTE ; Start 12/01/19 at 11:43; Stop 12/01/19 at 11:43; Status DC Diphenhydramine HCl (Benadryl) 50 mg 1X ONCE IM Last administered on 12/01/19at 11:55; Start 12/01/19 at 11:45; Stop 12/01/19 at 12:08; Status DC Lorazepam (Ativan Inj) 2 mg 1X ONCE IM Last administered on 12/01/19at 11:55; Start 12/01/19 at 11:45; Stop 12/01/19 at 12:08; Status DC Haloperidol Lactate (Haldol Inj) 5 mg 1X ONCE IM Last administered on 12/01/19at 11:55; Start 12/01/19 at 11:45; Stop 12/01/19 at 12:08; Status DC Diphenhydramine HCl (Benadryl) 50 mg STK-MED ONCE .ROUTE ; Start 12/01/19 at 11:43; Stop 12/01/19 at 11:44; Status DC Sodium Chloride 1,000 ml @ 1,000 mls/hr 1X ONCE IV Last administered on 12/01/19at 13:15; Start 12/01/19 at 13:15; Stop 12/01/19 at 14:14; Status DC Ondansetron HCl (Zofran) 4 mg PRN Q8HRS PRN IV NAUSEA/VOMITING; Start 12/01/19 at 13:30; Stop 12/02/19 at 11:34; Status DC Sodium Chloride (Normal Saline Flush) 3 ml QSHIFT PRN IV AFTER MEDS AND BLOOD DRAWS; Start 12/01/19 at 15:30 Sodium Chloride 1,000 ml @ 100 mls/hr Q10H IV Last administered on 12/02/19at 01:40; Start 12/01/19 at 15:18; Stop 12/02/19 at 07:23; Status DC Ondansetron HCl (Zofran) 4 mg PRN Q4HRS PRN IV NAUSEA/VOMITING; Start 12/01/19 at 15:30 Acetaminophen (Tylenol) 650 mg PRN Q4HRS PRN PO TEMP OVER 100.4F OR MILD PAIN; Start 12/01/19 at 15:30 Acetaminophen (Tylenol Supp) 650 mg PRN Q4HRS PRN NM TEMP OVER 100.4F OR MILD PAIN; Start 12/01/19 at 15:30 Al Hydroxide/Mg Hydroxide (Mylanta Plus Xs) 30 ml PRN DAILY PRN PO HEARTBURN / GAS; Start 12/01/19 at 15:30 Clonidine HCl (Catapres) 0.1 mg PRN Q6HRS PRN PO SBP>160 OR DBP>90; Start 12/01/19 at 15:30 Sodium Monofluorophosphate (Fleet Adult) 133 ml PRN DAILY PRN NM CONSTIPATION; Start 12/01/19 at 15:30 Docusate Sodium (Colace) 100 mg PRN BID PRN PO HARD STOOLS; Start 12/01/19 at 15:30 Albuterol Sulfate (Ventolin Neb Soln) 2.5 mg PRN Q4HRS PRN NEB SHORTNESS OF BREATH; Start 12/01/19 at 15:30 Guaifenesin (Robitussin) 200 mg PRN Q4HRS PRN PO COUGH; Start 12/01/19 at 15:30 Lorazepam (Ativan) 0.5 mg PRN Q4HRS PRN PO ANXIETY / AGITATION Last administered on 12/02/19at 12:38; Start 12/01/19 at 15:30 Lorazepam (Ativan Inj) 2 mg PRN Q4HRS PRN IV ANXIETY / AGITATION; Start 12/01/19 at 15:30 Enoxaparin Sodium (Lovenox 40mg Syringe) 40 mg Q24H SQ Last administered on 12/02/19at 14:21; Start 12/01/19 at 15:30 Ketorolac Tromethamine (Toradol 30mg Vial) 30 mg 1X ONCE IVP Last administered on 12/02/19at 08:25; Start 12/02/19 at 07:30; Stop 12/02/19 at 07:31; Status DC Methocarbamol (Robaxin) 1,000 mg PRN Q8HRS PRN PO MUSCLE SPASMS Last administered on 12/02/19at 10:09; Start 12/02/19 at 07:30 Sodium Chloride 1,000 ml @ 100 mls/hr Q10H IV Last administered on 12/02/19at 14:22; Start 12/02/19 at 13:15 Nicotine (Nicoderm Cq 21mg) 1 patch PRN DAILY PRN TD SMOKING CESSATION Last administered on 12/02/19at 14:21; Start 12/02/19 at 13:30 Allergies Allergies: Coded Allergies: No Known Drug Allergies (Unverified , 12/01/19) ROS Review of System As per HPI, rest ROS is negative Pt poor Historian and agitated Physical Exam Physical Exam General: No acute distress HEENT: Atraumatic, OM moist Neck supple Lungs: Normal air movement Heart: RRR Abdomen: Normal bowel sounds, Soft, No tenderness Extremities: No cyanosis, No edema Skin: No significant lesion, No rash Neuro: Cranial nerves 3-12 NL No matias Vital Signs Vital Signs Date Time Temp Pulse Resp B/P (MAP) Pulse Ox O2 Delivery O2 Flow Rate FiO2 12/02/19 11:41 97.9 62 16 122/59 (80) 98 Room Air 97.9 Assessment & Plan TITI - Pre-renal , Mild Rhabdo , resolved E-Lytes stable, IVF, Supportive care , Strict I/O - dw RN Rhabdo- Mild , Post ?Tasered ?UA WBC + - per Primary Altered mental status, acute, bipolar decompensation secondary to medication non adherence Left frontal lobe wedge-shaped hypoattenuation, may represent cytotoxic edema and related to subacute infarct although a component of vasogenic edema is possible. Recommend brain MRI with and without contrast to exclude underlying lesion. HX Glioma ? records pending Psychomotor agitation Drug use- Pt denies, UDS positive for Cannabinoids Post taser Labs Labs Laboratory Tests Test 12/01/19 11:50 12/02/19 04:00 12/02/19 05:00 White Blood Count 6.9 x10^3/uL (4.0-11.0) 6.0 x10^3/uL (4.0-11.0) Red Blood Count 4.67 x10^6/uL (4.30-5.70) 4.06 x10^6/uL (4.30-5.70) Hemoglobin 15.3 g/dL (13.0-17.5) 13.1 g/dL (13.0-17.5) Hematocrit 43.0 % (39.0-53.0) 38.1 % (39.0-53.0) Mean Corpuscular Volume 92 fL (79-100) 94 fL (79-100) Mean Corpuscular Hemoglobin 33 pg (25-35) 32 pg (25-35) Mean Corpuscular Hemoglobin Concent 36 g/dL (31-37) 34 g/dL (31-37) Red Cell Distribution Width 13.0 % (11.5-14.5) 13.2 % (11.5-14.5) Platelet Count 239 x10^3/uL (140-400) 184 x10^3/uL (140-400) Neutrophils (%) (Auto) 58 % (31-73) 45 % (31-73) Lymphocytes (%) (Auto) 30 % (24-48) 43 % (24-48) Monocytes (%) (Auto) 10 % (0-9) 9 % (0-9) Eosinophils (%) (Auto) 2 % (0-3) 3 % (0-3) Basophils (%) (Auto) 1 % (0-3) 0 % (0-3) Neutrophils # (Auto) 4.0 x10^3/uL (1.8-7.7) 2.7 x10^3/uL (1.8-7.7) Lymphocytes # (Auto) 2.1 x10^3/uL (1.0-4.8) 2.5 x10^3/uL (1.0-4.8) Monocytes # (Auto) 0.7 x10^3/uL (0.0-1.1) 0.5 x10^3/uL (0.0-1.1) Eosinophils # (Auto) 0.1 x10^3/uL (0.0-0.7) 0.2 x10^3/uL (0.0-0.7) Basophils # (Auto) 0.0 x10^3/uL (0.0-0.2) 0.0 x10^3/uL (0.0-0.2) Sodium Level 143 mmol/L (136-145) 142 mmol/L (136-145) Potassium Level 3.7 mmol/L (3.5-5.1) 3.7 mmol/L (3.5-5.1) Chloride Level 103 mmol/L (98-107) 107 mmol/L (98-107) Carbon Dioxide Level 27 mmol/L (21-32) 27 mmol/L (21-32) Anion Gap 13 (6-14) 8 (6-14) Blood Urea Nitrogen 17 mg/dL (8-26) 15 mg/dL (8-26) Creatinine 1.5 mg/dL (0.7-1.3) 1.0 mg/dL (0.7-1.3) Estimated GFR (Cockcroft-Gault) 55.0 87.7 BUN/Creatinine Ratio 11 (6-20) 15 (6-20) Glucose Level 94 mg/dL (70-99) 97 mg/dL (70-99) Calcium Level 9.1 mg/dL (8.5-10.1) 8.0 mg/dL (8.5-10.1) Total Bilirubin 0.5 mg/dL (0.2-1.0) 0.3 mg/dL (0.2-1.0) Aspartate Amino Transf (AST/SGOT) 35 U/L (15-37) 22 U/L (15-37) Alanine Aminotransferase (ALT/SGPT) 24 U/L (16-63) 18 U/L (16-63) Alkaline Phosphatase 62 U/L (46-116) 49 U/L (46-116) Creatine Kinase 836 U/L (39-308) Troponin I Quantitative < 0.017 ng/mL (0.000-0.055) Total Protein 7.9 g/dL (6.4-8.2) 5.8 g/dL (6.4-8.2) Albumin 4.5 g/dL (3.4-5.0) 3.2 g/dL (3.4-5.0) Albumin/Globulin Ratio 1.3 (1.0-1.7) 1.2 (1.0-1.7) Thyroid Stimulating Hormone (TSH) 1.269 uIU/mL (0.358-3.74) Salicylates Level 3.0 mg/dL (2.8-20.0) Salicylate Last Dose Date Unknown Salicylate Last Dose Time Unknown Acetaminophen Level < 2 mcg/ml (10-30) Acetaminophen Last Dose Date Unknown Acetaminophen Last Dose Time Unknown Ethyl Alcohol Level < 10 mg/dL (0-10) Urine Collection Type Unknown Urine Color Barb Urine Clarity Clear Urine pH 6.0 (<5.0-8.0) Urine Specific [place] >=1.030 (1.000-1.030) Urine Protein Negative mg/dL (NEG-TRACE) Urine Glucose (UA) Negative mg/dL (NEG) Urine Ketones (Stick) Trace mg/dL (NEG) Urine Blood Negative (NEG) Urine Nitrite Negative (NEG) Urine Bilirubin Small (NEG) Urine Urobilinogen Dipstick 1.0 mg/dL (0.2 mg/dL) Urine Leukocyte Esterase Negative (NEG) Urine RBC Occ /HPF (0-2) Urine WBC 20-40 /HPF (0-4) Urine Squamous Epithelial Cells Occ /LPF Urine Bacteria 0 /HPF (0-FEW) Urine Hyaline Casts Few /HPF Urine Mucus Marked /LPF Urine Opiates Screen Neg (NEG) Urine Methadone Screen Neg (NEG) Urine Barbiturates Neg (NEG) Urine Phencyclidine Screen Neg (NEG) Urine Amphetamine/Methamphetamine Neg (NEG) Urine Benzodiazepines Screen Neg (NEG) Urine Cocaine Screen Neg (NEG) Urine Cannabinoids Screen Pos (NEG) Urine Ethyl Alcohol Neg (NEG) Laboratory Tests Test 12/02/19 04:00 12/02/19 05:00 Urine Collection Type Unknown Urine Color Barb Urine Clarity Clear Urine pH 6.0 (<5.0-8.0) Urine Specific [place] >=1.030 (1.000-1.030) Urine Protein Negative mg/dL (NEG-TRACE) Urine Glucose (UA) Negative mg/dL (NEG) Urine Ketones (Stick) Trace mg/dL (NEG) Urine Blood Negative (NEG) Urine Nitrite Negative (NEG) Urine Bilirubin Small (NEG) Urine Urobilinogen Dipstick 1.0 mg/dL (0.2 mg/dL) Urine Leukocyte Esterase Negative (NEG) Urine RBC Occ /HPF (0-2) Urine WBC 20-40 /HPF (0-4) Urine Squamous Epithelial Cells Occ /LPF Urine Bacteria 0 /HPF (0-FEW) Urine Hyaline Casts Few /HPF Urine Mucus Marked /LPF Urine Opiates Screen Neg (NEG) Urine Methadone Screen Neg (NEG) Urine Barbiturates Neg (NEG) Urine Phencyclidine Screen Neg (NEG) Urine Amphetamine/Methamphetamine Neg (NEG) Urine Benzodiazepines Screen Neg (NEG) Urine Cocaine Screen Neg (NEG) Urine Cannabinoids Screen Pos (NEG) Urine Ethyl Alcohol Neg (NEG) White Blood Count 6.0 x10^3/uL (4.0-11.0) Red Blood Count 4.06 x10^6/uL (4.30-5.70) Hemoglobin 13.1 g/dL (13.0-17.5) Hematocrit 38.1 % (39.0-53.0) Mean Corpuscular Volume 94 fL (79-100) Mean Corpuscular Hemoglobin 32 pg (25-35) Mean Corpuscular Hemoglobin Concent 34 g/dL (31-37) Red Cell Distribution Width 13.2 % (11.5-14.5) Platelet Count 184 x10^3/uL (140-400) Neutrophils (%) (Auto) 45 % (31-73) Lymphocytes (%) (Auto) 43 % (24-48) Monocytes (%) (Auto) 9 % (0-9) Eosinophils (%) (Auto) 3 % (0-3) Basophils (%) (Auto) 0 % (0-3) Neutrophils # (Auto) 2.7 x10^3/uL (1.8-7.7) Lymphocytes # (Auto) 2.5 x10^3/uL (1.0-4.8) Monocytes # (Auto) 0.5 x10^3/uL (0.0-1.1) Eosinophils # (Auto) 0.2 x10^3/uL (0.0-0.7) Basophils # (Auto) 0.0 x10^3/uL (0.0-0.2) Sodium Level 142 mmol/L (136-145) Potassium Level 3.7 mmol/L (3.5-5.1) Chloride Level 107 mmol/L (98-107) Carbon Dioxide Level 27 mmol/L (21-32) Anion Gap 8 (6-14) Blood Urea Nitrogen 15 mg/dL (8-26) Creatinine 1.0 mg/dL (0.7-1.3) Estimated GFR (Cockcroft-Gault) 87.7 BUN/Creatinine Ratio 15 (6-20) Glucose Level 97 mg/dL (70-99) Calcium Level 8.0 mg/dL (8.5-10.1) Total Bilirubin 0.3 mg/dL (0.2-1.0) Aspartate Amino Transf (AST/SGOT) 22 U/L (15-37) Alanine Aminotransferase (ALT/SGPT) 18 U/L (16-63) Alkaline Phosphatase 49 U/L (46-116) Total Protein 5.8 g/dL (6.4-8.2) Albumin 3.2 g/dL (3.4-5.0) Albumin/Globulin Ratio 1.2 (1.0-1.7) Review All relevant outside records, renal labs, imaging studies, telemetry/EKG's were reviewed. Images Images Single view of chest obtained. No focal airspace consolidation. Cardiac silhouette is unremarkable. No gross osseous destructive lesion. IMPRESSION: * No focal airspace consolidation or edema. LANE ACOSTA MD Dec 02, 2019 15:03
--- NOTE | 2019-12-02 15:15 | PDOC1 ---
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 Chief Complaint: Chief Complaint Psychomotor agitation, profanity, agitation History of Present Illness: HPI: He is a 29-year-old gentleman with history of bipolar mood disorder who has not been taking his psychotropics brought in by law enforcement following confrontation and combative behavior with them. He was put in handcuffs. Upon interview, initially he appears guarded and composed likely downplaying with his symptomatology. However, he insisted to take his IV out. When informed that IV is required since he is in the hospital and might need in case of emergency he became confrontational argumentative and started heated arguments. When confronted further to assess mood stability and impulsivity, he shouted, started threatening provider, accusatory, and very angry. Turned very defiant when told that IV cannot be taken out. He shouted and provider to leave the room. Patient's behavior, agitation, and argumentation are indicative of patient's minimal control on impulsivity, anger dyscontrol expected and frontal lobe lesions. He refused to provide any information and told nurse to tell provider to leave the room. Patient was informed regarding his behavior, agitated, risk of self-harm. When discussed about medications, patient referred it to third person to home everybody knows except this provider. He told quality analyst/technical writer to go and find out. Past Psychiatric History: Previous history of bipolar mood disorder. Bipolar mood disorder could be secondary to frontal lobe lesion. History of hospitalization and medications are not known. Patient refused to provide information Past Medical History: 1. Altered mental status, acute, bipolar decompensation secondary to medication non adherence 2. Left frontal lobe wedge-shaped hypoattenuation, may represent cytotoxic edema and related to subacute infarct although a component of vasogenic edema is possible. Recommend brain MRI with and without contrast to exclude underlying lesion. 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 TITI 5. Psychomotor agitation 6. POST [employer] CPK Family History: Family history is not known due to patient factor. Patient refused to comply wi th further questioning Social History: Social History: Social history is not available due to patient factor. Patient failed to comply for further questioning. Current Medications: Current Medications Current Medications Medications (Trade) Dose Ordered Sig/Trinh Start Time Stop Time Status Last Admin Dose Admin Acetaminophen (Tylenol Supp) 650 mg PRN Q4HRS PRN 12/01/19 15:30 Acetaminophen (Tylenol) 650 mg PRN Q4HRS PRN 12/01/19 15:30 Al Hydroxide/Mg Hydroxide (Mylanta Plus Xs) 30 ml PRN DAILY PRN 12/01/19 15:30 Albuterol Sulfate (Ventolin Neb Soln) 2.5 mg PRN Q4HRS PRN 12/01/19 15:30 Clonidine HCl (Catapres) 0.1 mg PRN Q6HRS PRN 12/01/19 15:30 Diphenhydramine HCl (Benadryl) 50 mg STK-MED ONCE 12/01/19 11:43 12/01/19 11:44 DC Docusate Sodium (Colace) 100 mg PRN BID PRN 12/01/19 15:30 Enoxaparin Sodium (Lovenox 40mg Syringe) 40 mg Q24H 12/01/19 15:30 12/02/19 14:21 40 MG Guaifenesin (Robitussin) 200 mg PRN Q4HRS PRN 12/01/19 15:30 Haloperidol Lactate (Haldol Inj) 5 mg 1X ONCE 12/01/19 11:45 12/01/19 12:08 DC 12/01/19 11:55 5 MG Ketorolac Tromethamine (Toradol 30mg Vial) 30 mg 1X ONCE 12/02/19 07:30 12/02/19 07:31 DC 12/02/19 08:25 30 MG Lorazepam (Ativan Inj) 2 mg PRN Q4HRS PRN 12/01/19 15:30 Lorazepam (Ativan) 0.5 mg PRN Q4HRS PRN 12/01/19 15:30 12/02/19 12:38 0.5 MG Methocarbamol (Robaxin) 1,000 mg PRN Q8HRS PRN 12/02/19 07:30 12/02/19 10:09 1,000 MG Nicotine (Nicoderm Cq 21mg) 1 patch PRN DAILY PRN 12/02/19 13:30 12/02/19 14:21 1 PATCH Ondansetron HCl (Zofran) 4 mg PRN Q4HRS PRN 12/01/19 15:30 Sodium Monofluorophosphate (Fleet Adult) 133 ml PRN DAILY PRN 12/01/19 15:30 Sodium Chloride 1,000 ml @ 100 mls/hr Q10H 12/02/19 13:15 12/02/19 14:22 100 MLS/HR Sodium Chloride (Normal Saline Flush) 3 ml QSHIFT PRN 12/01/19 15:30 Allergies: Allergies: Coded Allergies: No Known Drug Allergies (Unverified , 12/01/19) Mental Status Examination: Mental Status Examination gentleman, appears as a stated age, fairly groomed, fairly nourished Uncooperative, restricted and guarded resistant to psychological exploration Argumentative Disoriented Thought processes concrete Denies auditory or visual hallucinations. No abnormal perception noted. Denies suicidal or homicidal thoughts. Mood is dysphoric Affect is dysthymic Impulse control is poor Insight is poor Judgment is poor Attention span and concentration fair Recent remote memory impaired ROS: 14 point review of system is otherwise negative except for as mentioned above in H&P. Physical Exam: Refer to Physician's note. FACTORY MACHINE COMPUTER OPERATOR: No focal deficit MSK: No EPS, TDK, or abnormal involuntary movements Vitals: Vitals Vital Signs Date Time Temp Pulse Resp B/P (MAP) Pulse Ox O2 Delivery O2 Flow Rate FiO2 12/02/19 11:41 97.9 62 16 122/59 (80) 98 Room Air 97.9 Labs: Labs Laboratory Tests Test 12/01/19 11:50 12/02/19 04:00 12/02/19 05:00 White Blood Count 6.9 x10^3/uL (4.0-11.0) 6.0 x10^3/uL (4.0-11.0) Red Blood Count 4.67 x10^6/uL (4.30-5.70) 4.06 x10^6/uL (4.30-5.70) Hemoglobin 15.3 g/dL (13.0-17.5) 13.1 g/dL (13.0-17.5) Hematocrit 43.0 % (39.0-53.0) 38.1 % (39.0-53.0) Mean Corpuscular Volume 92 fL (79-100) 94 fL (79-100) Mean Corpuscular Hemoglobin 33 pg (25-35) 32 pg (25-35) Mean Corpuscular Hemoglobin Concent 36 g/dL (31-37) 34 g/dL (31-37) Red Cell Distribution Width 13.0 % (11.5-14.5) 13.2 % (11.5-14.5) Platelet Count 239 x10^3/uL (140-400) 184 x10^3/uL (140-400) Neutrophils (%) (Auto) 58 % (31-73) 45 % (31-73) Lymphocytes (%) (Auto) 30 % (24-48) 43 % (24-48) Monocytes (%) (Auto) 10 % (0-9) 9 % (0-9) Eosinophils (%) (Auto) 2 % (0-3) 3 % (0-3) Basophils (%) (Auto) 1 % (0-3) 0 % (0-3) Neutrophils # (Auto) 4.0 x10^3/uL (1.8-7.7) 2.7 x10^3/uL (1.8-7.7) Lymphocytes # (Auto) 2.1 x10^3/uL (1.0-4.8) 2.5 x10^3/uL (1.0-4.8) Monocytes # (Auto) 0.7 x10^3/uL (0.0-1.1) 0.5 x10^3/uL (0.0-1.1) Eosinophils # (Auto) 0.1 x10^3/uL (0.0-0.7) 0.2 x10^3/uL (0.0-0.7) Basophils # (Auto) 0.0 x10^3/uL (0.0-0.2) 0.0 x10^3/uL (0.0-0.2) Sodium Level 143 mmol/L (136-145) 142 mmol/L (136-145) Potassium Level 3.7 mmol/L (3.5-5.1) 3.7 mmol/L (3.5-5.1) Chloride Level 103 mmol/L (98-107) 107 mmol/L (98-107) Carbon Dioxide Level 27 mmol/L (21-32) 27 mmol/L (21-32) Anion Gap 13 (6-14) 8 (6-14) Blood Urea Nitrogen 17 mg/dL (8-26) 15 mg/dL (8-26) Creatinine 1.5 mg/dL (0.7-1.3) 1.0 mg/dL (0.7-1.3) Estimated GFR (Cockcroft-Gault) 55.0 87.7 BUN/Creatinine Ratio 11 (6-20) 15 (6-20) Glucose Level 94 mg/dL (70-99) 97 mg/dL (70-99) Calcium Level 9.1 mg/dL (8.5-10.1) 8.0 mg/dL (8.5-10.1) Total Bilirubin 0.5 mg/dL (0.2-1.0) 0.3 mg/dL (0.2-1.0) Aspartate Amino Transf (AST/SGOT) 35 U/L (15-37) 22 U/L (15-37) Alanine Aminotransferase (ALT/SGPT) 24 U/L (16-63) 18 U/L (16-63) Alkaline Phosphatase 62 U/L (46-116) 49 U/L (46-116) Creatine Kinase 836 U/L (39-308) Troponin I Quantitative < 0.017 ng/mL (0.000-0.055) Total Protein 7.9 g/dL (6.4-8.2) 5.8 g/dL (6.4-8.2) Albumin 4.5 g/dL (3.4-5.0) 3.2 g/dL (3.4-5.0) Albumin/Globulin Ratio 1.3 (1.0-1.7) 1.2 (1.0-1.7) Thyroid Stimulating Hormone (TSH) 1.269 uIU/mL (0.358-3.74) Salicylates Level 3.0 mg/dL (2.8-20.0) Salicylate Last Dose Date Unknown Salicylate Last Dose Time Unknown Acetaminophen Level < 2 mcg/ml (10-30) Acetaminophen Last Dose Date Unknown Acetaminophen Last Dose Time Unknown Ethyl Alcohol Level < 10 mg/dL (0-10) Urine Collection Type Unknown Urine Color Barb Urine Clarity Clear Urine pH 6.0 (<5.0-8.0) Urine Specific [place] >=1.030 (1.000-1.030) Urine Protein Negative mg/dL (NEG-TRACE) Urine Glucose (UA) Negative mg/dL (NEG) Urine Ketones (Stick) Trace mg/dL (NEG) Urine Blood Negative (NEG) Urine Nitrite Negative (NEG) Urine Bilirubin Small (NEG) Urine Urobilinogen Dipstick 1.0 mg/dL (0.2 mg/dL) Urine Leukocyte Esterase Negative (NEG) Urine RBC Occ /HPF (0-2) Urine WBC 20-40 /HPF (0-4) Urine Squamous Epithelial Cells Occ /LPF Urine Bacteria 0 /HPF (0-FEW) Urine Hyaline Casts Few /HPF Urine Mucus Marked /LPF Urine Opiates Screen Neg (NEG) Urine Methadone Screen Neg (NEG) Urine Barbiturates Neg (NEG) Urine Phencyclidine Screen Neg (NEG) Urine Amphetamine/Methamphetamine Neg (NEG) Urine Benzodiazepines Screen Neg (NEG) Urine Cocaine Screen Neg (NEG) Urine Cannabinoids Screen Pos (NEG) Urine Ethyl Alcohol Neg (NEG) Laboratory Tests Test 12/02/19 04:00 12/02/19 05:00 Urine Collection Type Unknown Urine Color Barb Urine Clarity Clear Urine pH 6.0 (<5.0-8.0) Urine Specific [place] >=1.030 (1.000-1.030) Urine Protein Negative mg/dL (NEG-TRACE) Urine Glucose (UA) Negative mg/dL (NEG) Urine Ketones (Stick) Trace mg/dL (NEG) Urine Blood Negative (NEG) Urine Nitrite Negative (NEG) Urine Bilirubin Small (NEG) Urine Urobilinogen Dipstick 1.0 mg/dL (0.2 mg/dL) Urine Leukocyte Esterase Negative (NEG) Urine RBC Occ /HPF (0-2) Urine WBC 20-40 /HPF (0-4) Urine Squamous Epithelial Cells Occ /LPF Urine Bacteria 0 /HPF (0-FEW) Urine Hyaline Casts Few /HPF Urine Mucus Marked /LPF Urine Opiates Screen Neg (NEG) Urine Methadone Screen Neg (NEG) Urine Barbiturates Neg (NEG) Urine Phencyclidine Screen Neg (NEG) Urine Amphetamine/Methamphetamine Neg (NEG) Urine Benzodiazepines Screen Neg (NEG) Urine Cocaine Screen Neg (NEG) Urine Cannabinoids Screen Pos (NEG) Urine Ethyl Alcohol Neg (NEG) White Blood Count 6.0 x10^3/uL (4.0-11.0) Red Blood Count 4.06 x10^6/uL (4.30-5.70) Hemoglobin 13.1 g/dL (13.0-17.5) Hematocrit 38.1 % (39.0-53.0) Mean Corpuscular Volume 94 fL (79-100) Mean Corpuscular Hemoglobin 32 pg (25-35) Mean Corpuscular Hemoglobin Concent 34 g/dL (31-37) Red Cell Distribution Width 13.2 % (11.5-14.5) Platelet Count 184 x10^3/uL (140-400) Neutrophils (%) (Auto) 45 % (31-73) Lymphocytes (%) (Auto) 43 % (24-48) Monocytes (%) (Auto) 9 % (0-9) Eosinophils (%) (Auto) 3 % (0-3) Basophils (%) (Auto) 0 % (0-3) Neutrophils # (Auto) 2.7 x10^3/uL (1.8-7.7) Lymphocytes # (Auto) 2.5 x10^3/uL (1.0-4.8) Monocytes # (Auto) 0.5 x10^3/uL (0.0-1.1) Eosinophils # (Auto) 0.2 x10^3/uL (0.0-0.7) Basophils # (Auto) 0.0 x10^3/uL (0.0-0.2) Sodium Level 142 mmol/L (136-145) Potassium Level 3.7 mmol/L (3.5-5.1) Chloride Level 107 mmol/L (98-107) Carbon Dioxide Level 27 mmol/L (21-32) Anion Gap 8 (6-14) Blood Urea Nitrogen 15 mg/dL (8-26) Creatinine 1.0 mg/dL (0.7-1.3) Estimated GFR (Cockcroft-Gault) 87.7 BUN/Creatinine Ratio 15 (6-20) Glucose Level 97 mg/dL (70-99) Calcium Level 8.0 mg/dL (8.5-10.1) Total Bilirubin 0.3 mg/dL (0.2-1.0) Aspartate Amino Transf (AST/SGOT) 22 U/L (15-37) Alanine Aminotransferase (ALT/SGPT) 18 U/L (16-63) Alkaline Phosphatase 49 U/L (46-116) Total Protein 5.8 g/dL (6.4-8.2) Albumin 3.2 g/dL (3.4-5.0) Albumin/Globulin Ratio 1.2 (1.0-1.7) Diagnosis: Diagnosis: 1. Acute delirium, likely hypoactive hyperactive delusions, multifactorial 2. Unspecified psychosis. 3. Bipolar mood disorder by history 4. Rule out bipolar mood disorder due to general medical condition. 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 Apparently, he appeared evasive to the quality analyst/technical writer initially, demonstrated agitation and brief meltdown when confronted by quality analyst/technical writer. Given, history of combativeness, confrontation with police, recent demonstration of impulsivity, profanity, and agitation he is at risk of self-harm or harm to others. It is reasonable to keep patient on one-on-one observation until safety is established. And patient is a stabilized. In case of, patient request for AMA, he needs to be assessed thoroughly for safety and legal issues. He needs medication management for stability of mental health. Plan: Haldol 5 mg twice a day for mood stability. Continue Ativan as is. Haldol 5 mg every 6 hours as needed for agitation and breakthrough anxiety. Ativan 1 mg every 6 hours with Haldol for agitation and breakthrough anxiety. Risk, benefits, alternatives of the treatment are explained. Thank you for involving inpatient care for NEEL MARQUIS MD Dec 02, 2019 15:15
[2019-12-02] MEDS ORDERED: HYDR50CA PO (15:21)
[2019-12-02] MEDS ORDERED: SERT100T PO (15:24)
--- NOTE | 2019-12-02 15:36 | PDOC2 ---
NEUROLOGY CONSULT Date of Admission Date of Admission DATE: 12/02/19 TIME: 15:30 Reason for Consult Reason for Consult: Altered mental status Referring Physician Referring Physician: Dr. Lee Source Source: Chart review, Patient History of Present Illness History of Present Illness The patient is a 29-year-old right-handed male with bipolar disorder off of his psychotropics brought in by law enforcement following a confrontation and violent behavior. He was put in handcuffs. He was tased. He required heavy sedation in the emergency department. He did have a head CT as reviewed below. He was told that he has a history of left frontal glioma which has been followed at [facility] as well as [facility]. This apparently has been stable. Patient was also very aggressive with the psychiatrist earlier this day. He told the nurse that he smoked marijuana, menthols, and vape, but he tells me that he has been clean and sober for 2 years. Past Medical History CENTRAL NERVOUS SYSTEM: Other (Left frontal glioma) Psych: Addictions, Bipolar Past Surgical History Past Surgical History: Other (Testicular) Family History Family History: No pertinent hx Social History Social History Single, unemployed, denies alcohol, tobacco, street drugs Current Medications Current Medications Current Medications Sodium Chloride 1,000 ml @ 1,000 mls/hr Q1H IV Last administered on 12/01/19at 11:58; Start 12/01/19 at 11:30; Stop 12/01/19 at 12:29; Status DC Haloperidol Lactate (Haldol Inj) 5 mg STK-MED ONCE .ROUTE ; Start 12/01/19 at 11:43; Stop 12/01/19 at 11:43; Status DC Lorazepam (Ativan Inj) 2 mg STK-MED ONCE .ROUTE ; Start 12/01/19 at 11:43; Stop 12/01/19 at 11:43; Status DC Diphenhydramine HCl (Benadryl) 50 mg 1X ONCE IM Last administered on 12/01/19at 11:55; Start 12/01/19 at 11:45; Stop 12/01/19 at 12:08; Status DC Lorazepam (Ativan Inj) 2 mg 1X ONCE IM Last administered on 12/01/19at 11:55; Start 12/01/19 at 11:45; Stop 12/01/19 at 12:08; Status DC Haloperidol Lactate (Haldol Inj) 5 mg 1X ONCE IM Last administered on 12/01/19at 11:55; Start 12/01/19 at 11:45; Stop 12/01/19 at 12:08; Status DC Diphenhydramine HCl (Benadryl) 50 mg STK-MED ONCE .ROUTE ; Start 12/01/19 at 11:43; Stop 12/01/19 at 11:44; Status DC Sodium Chloride 1,000 ml @ 1,000 mls/hr 1X ONCE IV Last administered on 12/01/19at 13:15; Start 12/01/19 at 13:15; Stop 12/01/19 at 14:14; Status DC Ondansetron HCl (Zofran) 4 mg PRN Q8HRS PRN IV NAUSEA/VOMITING; Start 12/01/19 at 13:30; Stop 12/02/19 at 11:34; Status DC Sodium Chloride (Normal Saline Flush) 3 ml QSHIFT PRN IV AFTER MEDS AND BLOOD DRAWS; Start 12/01/19 at 15:30 Sodium Chloride 1,000 ml @ 100 mls/hr Q10H IV Last administered on 12/02/19at 01:40; Start 12/01/19 at 15:18; Stop 12/02/19 at 07:23; Status DC Ondansetron HCl (Zofran) 4 mg PRN Q4HRS PRN IV NAUSEA/VOMITING; Start 12/01/19 at 15:30 Acetaminophen (Tylenol) 650 mg PRN Q4HRS PRN PO TEMP OVER 100.4F OR MILD PAIN; Start 12/01/19 at 15:30 Acetaminophen (Tylenol Supp) 650 mg PRN Q4HRS PRN [place] TEMP OVER 100.4F OR MILD PAIN; Start 12/01/19 at 15:30 Al Hydroxide/Mg Hydroxide (Mylanta Plus Xs) 30 ml PRN DAILY PRN PO HEARTBURN / GAS; Start 12/01/19 at 15:30 Clonidine HCl (Catapres) 0.1 mg PRN Q6HRS PRN PO SBP>160 OR DBP>90; Start 12/01/19 at 15:30 Sodium Monofluorophosphate (Fleet Adult) 133 ml PRN DAILY PRN IL CONSTIPATION; Start 12/01/19 at 15:30 Docusate Sodium (Colace) 100 mg PRN BID PRN PO HARD STOOLS; Start 12/01/19 at 15:30 Albuterol Sulfate (Ventolin Neb Soln) 2.5 mg PRN Q4HRS PRN NEB SHORTNESS OF BREATH; Start 12/01/19 at 15:30 Guaifenesin (Robitussin) 200 mg PRN Q4HRS PRN PO COUGH; Start 12/01/19 at 15:30 Lorazepam (Ativan) 0.5 mg PRN Q4HRS PRN PO ANXIETY / AGITATION Last administered on 12/02/19at 12:38; Start 12/01/19 at 15:30 Lorazepam (Ativan Inj) 2 mg PRN Q4HRS PRN IV ANXIETY / AGITATION; Start 12/01/19 at 15:30 Enoxaparin Sodium (Lovenox 40mg Syringe) 40 mg Q24H SQ Last administered on 12/02/19at 14:21; Start 12/01/19 at 15:30 Ketorolac Tromethamine (Toradol 30mg Vial) 30 mg 1X ONCE IVP Last administered on 12/02/19at 08:25; Start 12/02/19 at 07:30; Stop 12/02/19 at 07:31; Status DC Methocarbamol (Robaxin) 1,000 mg PRN Q8HRS PRN PO MUSCLE SPASMS Last administered on 12/02/19at 10:09; Start 12/02/19 at 07:30 Sodium Chloride 1,000 ml @ 100 mls/hr Q10H IV Last administered on 12/02/19at 14:22; Start 12/02/19 at 13:15 Nicotine (Nicoderm Cq 21mg) 1 patch PRN DAILY PRN TD SMOKING CESSATION Last administered on 12/02/19at 14:21; Start 12/02/19 at 13:30 Active Scripts Active Reported Zoloft (Sertraline Hcl) 100 Mg Tablet 1 Tab PO DAILY Vistaril (Hydroxyzine Pamoate) 50 Mg Capsule 50 Mg PO TID PRN Allergies Allergies: Coded Allergies: No Known Drug Allergies (Unverified , 12/01/19) ROS Review of System Negative for fever, chills, weight loss, shortness of breath, chest pain, indigestion, hematochezia, melena, and dysuria. Full 14-point review of systems is negative. Physical Exam Physical Examination General: Well-developed, well-nourished white male in no acute distress HEENT: Normocephalic andatraumatic.Temporal arteriespulsatile and nontender. Neck: Supple without bruit, no meningismus Musculoskeletal: Stability:see neurologic. Gait exam:see neurologic. Tone:see neurologic.Strength:see neurologic. Neurological: Mental Status:intact, orientation, memory, attention span/concentration, language, fund of knowledge normal. He is pleasant for this examiner, says, "at least you did not sit on my stuff" apparently referring to the psychiatrist. Cranial Nerves:Pupils equal and reactive to light, extraocular movements areintact, visual pereyra are full to confrontation. Facial sensation is normal. There is no facial asymmetry. Vestibulo-ocular reflex is intact. Palate elevates and tongue protrudes in midline. All other cranial related problems are negative except as mentioned before.Reflexes:2+ and symmetric with flexor plantar responses. Motor:5/5 strength with normal tone and bulk. Coordination:Finger- nose finger and uwpy-pg-bole testing are normal. Rapid alternating movements and fine finger movements are intact. Gait:Normal, including tandem. Sensory:Normal pinprick, vibration, light touch, proprioception. Vitals VITALS Vital Signs Date Time Temp Pulse Resp B/P (MAP) Pulse Ox O2 Delivery O2 Flow Rate FiO2 12/02/19 11:41 97.9 62 16 122/59 (80) 98 Room Air 97.9 Labs Labs Laboratory Tests Test 12/01/19 11:50 12/02/19 04:00 12/02/19 05:00 White Blood Count 6.9 x10^3/uL (4.0-11.0) 6.0 x10^3/uL (4.0-11.0) Red Blood Count 4.67 x10^6/uL (4.30-5.70) 4.06 x10^6/uL (4.30-5.70) Hemoglobin 15.3 g/dL (13.0-17.5) 13.1 g/dL (13.0-17.5) Hematocrit 43.0 % (39.0-53.0) 38.1 % (39.0-53.0) Mean Corpuscular Volume 92 fL (79-100) 94 fL (79-100) Mean Corpuscular Hemoglobin 33 pg (25-35) 32 pg (25-35) Mean Corpuscular Hemoglobin Concent 36 g/dL (31-37) 34 g/dL (31-37) Red Cell Distribution Width 13.0 % (11.5-14.5) 13.2 % (11.5-14.5) Platelet Count 239 x10^3/uL (140-400) 184 x10^3/uL (140-400) Neutrophils (%) (Auto) 58 % (31-73) 45 % (31-73) Lymphocytes (%) (Auto) 30 % (24-48) 43 % (24-48) Monocytes (%) (Auto) 10 % (0-9) 9 % (0-9) Eosinophils (%) (Auto) 2 % (0-3) 3 % (0-3) Basophils (%) (Auto) 1 % (0-3) 0 % (0-3) Neutrophils # (Auto) 4.0 x10^3/uL (1.8-7.7) 2.7 x10^3/uL (1.8-7.7) Lymphocytes # (Auto) 2.1 x10^3/uL (1.0-4.8) 2.5 x10^3/uL (1.0-4.8) Monocytes # (Auto) 0.7 x10^3/uL (0.0-1.1) 0.5 x10^3/uL (0.0-1.1) Eosinophils # (Auto) 0.1 x10^3/uL (0.0-0.7) 0.2 x10^3/uL (0.0-0.7) Basophils # (Auto) 0.0 x10^3/uL (0.0-0.2) 0.0 x10^3/uL (0.0-0.2) Sodium Level 143 mmol/L (136-145) 142 mmol/L (136-145) Potassium Level 3.7 mmol/L (3.5-5.1) 3.7 mmol/L (3.5-5.1) Chloride Level 103 mmol/L (98-107) 107 mmol/L (98-107) Carbon Dioxide Level 27 mmol/L (21-32) 27 mmol/L (21-32) Anion Gap 13 (6-14) 8 (6-14) Blood Urea Nitrogen 17 mg/dL (8-26) 15 mg/dL (8-26) Creatinine 1.5 mg/dL (0.7-1.3) 1.0 mg/dL (0.7-1.3) Estimated GFR (Cockcroft-Gault) 55.0 87.7 BUN/Creatinine Ratio 11 (6-20) 15 (6-20) Glucose Level 94 mg/dL (70-99) 97 mg/dL (70-99) Calcium Level 9.1 mg/dL (8.5-10.1) 8.0 mg/dL (8.5-10.1) Total Bilirubin 0.5 mg/dL (0.2-1.0) 0.3 mg/dL (0.2-1.0) Aspartate Amino Transf (AST/SGOT) 35 U/L (15-37) 22 U/L (15-37) Alanine Aminotransferase (ALT/SGPT) 24 U/L (16-63) 18 U/L (16-63) Alkaline Phosphatase 62 U/L (46-116) 49 U/L (46-116) Creatine Kinase 836 U/L (39-308) Troponin I Quantitative < 0.017 ng/mL (0.000-0.055) Total Protein 7.9 g/dL (6.4-8.2) 5.8 g/dL (6.4-8.2) Albumin 4.5 g/dL (3.4-5.0) 3.2 g/dL (3.4-5.0) Albumin/Globulin Ratio 1.3 (1.0-1.7) 1.2 (1.0-1.7) Thyroid Stimulating Hormone (TSH) 1.269 uIU/mL (0.358-3.74) Salicylates Level 3.0 mg/dL (2.8-20.0) Salicylate Last Dose Date Unknown Salicylate Last Dose Time Unknown Acetaminophen Level < 2 mcg/ml (10-30) Acetaminophen Last Dose Date Unknown Acetaminophen Last Dose Time Unknown Ethyl Alcohol Level < 10 mg/dL (0-10) Urine Collection Type Unknown Urine Color Barb Urine Clarity Clear Urine pH 6.0 (<5.0-8.0) Urine Specific [place] >=1.030 (1.000-1.030) Urine Protein Negative mg/dL (NEG-TRACE) Urine Glucose (UA) Negative mg/dL (NEG) Urine Ketones (Stick) Trace mg/dL (NEG) Urine Blood Negative (NEG) Urine Nitrite Negative (NEG) Urine Bilirubin Small (NEG) Urine Urobilinogen Dipstick 1.0 mg/dL (0.2 mg/dL) Urine Leukocyte Esterase Negative (NEG) Urine RBC Occ /HPF (0-2) Urine WBC 20-40 /HPF (0-4) Urine Squamous Epithelial Cells Occ /LPF Urine Bacteria 0 /HPF (0-FEW) Urine Hyaline Casts Few /HPF Urine Mucus Marked /LPF Urine Opiates Screen Neg (NEG) Urine Methadone Screen Neg (NEG) Urine Barbiturates Neg (NEG) Urine Phencyclidine Screen Neg (NEG) Urine Amphetamine/Methamphetamine Neg (NEG) Urine Benzodiazepines Screen Neg (NEG) Urine Cocaine Screen Neg (NEG) Urine Cannabinoids Screen Pos (NEG) Urine Ethyl Alcohol Neg (NEG) Laboratory Tests Test 12/02/19 04:00 12/02/19 05:00 Urine Collection Type Unknown Urine Color Barb Urine Clarity Clear Urine pH 6.0 (<5.0-8.0) Urine Specific [place] >=1.030 (1.000-1.030) Urine Protein Negative mg/dL (NEG-TRACE) Urine Glucose (UA) Negative mg/dL (NEG) Urine Ketones (Stick) Trace mg/dL (NEG) Urine Blood Negative (NEG) Urine Nitrite Negative (NEG) Urine Bilirubin Small (NEG) Urine Urobilinogen Dipstick 1.0 mg/dL (0.2 mg/dL) Urine Leukocyte Esterase Negative (NEG) Urine RBC Occ /HPF (0-2) Urine WBC 20-40 /HPF (0-4) Urine Squamous Epithelial Cells Occ /LPF Urine Bacteria 0 /HPF (0-FEW) Urine Hyaline Casts Few /HPF Urine Mucus Marked /LPF Urine Opiates Screen Neg (NEG) Urine Methadone Screen Neg (NEG) Urine Barbiturates Neg (NEG) Urine Phencyclidine Screen Neg (NEG) Urine Amphetamine/Methamphetamine Neg (NEG) Urine Benzodiazepines Screen Neg (NEG) Urine Cocaine Screen Neg (NEG) Urine Cannabinoids Screen Pos (NEG) Urine Ethyl Alcohol Neg (NEG) White Blood Count 6.0 x10^3/uL (4.0-11.0) Red Blood Count 4.06 x10^6/uL (4.30-5.70) Hemoglobin 13.1 g/dL (13.0-17.5) Hematocrit 38.1 % (39.0-53.0) Mean Corpuscular Volume 94 fL (79-100) Mean Corpuscular Hemoglobin 32 pg (25-35) Mean Corpuscular Hemoglobin Concent 34 g/dL (31-37) Red Cell Distribution Width 13.2 % (11.5-14.5) Platelet Count 184 x10^3/uL (140-400) Neutrophils (%) (Auto) 45 % (31-73) Lymphocytes (%) (Auto) 43 % (24-48) Monocytes (%) (Auto) 9 % (0-9) Eosinophils (%) (Auto) 3 % (0-3) Basophils (%) (Auto) 0 % (0-3) Neutrophils # (Auto) 2.7 x10^3/uL (1.8-7.7) Lymphocytes # (Auto) 2.5 x10^3/uL (1.0-4.8) Monocytes # (Auto) 0.5 x10^3/uL (0.0-1.1) Eosinophils # (Auto) 0.2 x10^3/uL (0.0-0.7) Basophils # (Auto) 0.0 x10^3/uL (0.0-0.2) Sodium Level 142 mmol/L (136-145) Potassium Level 3.7 mmol/L (3.5-5.1) Chloride Level 107 mmol/L (98-107) Carbon Dioxide Level 27 mmol/L (21-32) Anion Gap 8 (6-14) Blood Urea Nitrogen 15 mg/dL (8-26) Creatinine 1.0 mg/dL (0.7-1.3) Estimated GFR (Cockcroft-Gault) 87.7 BUN/Creatinine Ratio 15 (6-20) Glucose Level 97 mg/dL (70-99) Calcium Level 8.0 mg/dL (8.5-10.1) Total Bilirubin 0.3 mg/dL (0.2-1.0) Aspartate Amino Transf (AST/SGOT) 22 U/L (15-37) Alanine Aminotransferase (ALT/SGPT) 18 U/L (16-63) Alkaline Phosphatase 49 U/L (46-116) Total Protein 5.8 g/dL (6.4-8.2) Albumin 3.2 g/dL (3.4-5.0) Albumin/Globulin Ratio 1.2 (1.0-1.7) Images Images CT HEAD WO CONTRAST History: Reason: AMS / Spl. Instructions: / History: Comparison: None. Technique: Noncontrast CT imaging was performed of the head. Exposure: One or more of the following individualized dose reduction techniques were utilized for this examination: 1. Automated exposure control 2. Adjustment of the mA and/or kV according to patient size 3. Use of iterative reconstruction technique. Findings: Wedge-shaped hypoattenuation within the left frontal lobe. No acute hemorrhage. No significant mass effect. No hydrocephalus. Imaged orbits are unremarkable. Imaged paranasal sinuses and mastoid air cells are clear. No acute calvarial fracture. Impression: 1. Left frontal lobe wedge-shaped hypoattenuation, may represent cytotoxic edema and related to subacute infarct although a component of vasogenic edema is possible. Recommend brain MRI with and without contrast to exclude underlying lesion. Assessment/Plan Assessment/Plan Impression: Left frontal glioma, this is very small and unlikely to contribute to major personality changes. 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 Recommendations: I will have radiology burn a CD so patient can have his main physician compare. If he is here a couple days or so we can have images clouded for our radiologist to compare Otherwise, as per psychiatry. Thank you for letting me help with the patient's care. LE BRIZUELA MD Dec 02, 2019 15:36
--- NOTE | 2019-12-02 16:32 | NUR ---
1415 I was in pt's room giving medications when Dr Alba walked in and politely asked patient for information on why he felt he was hospitalized. The patient became confrontive with the doctor and used prolific profanity and told the doctor to get out of his room and that the doctor could "figure things out" on his own. The patient wanted his IV out and Dr Alba said it was required in case emergency medication needed to be given him, the patient screamed at the doctor. I called security when the patient sat up in bed aggressively. Dr Alba maintained a calm and polite demeanor. Security did not have to go into pt's room since pt settled down after the doctor left. 1:1 status is continued, and Dr Alba put that in his note. supervisor ovens and charge nurse were notified.
[2019-12-02] MEDS: HALOPERIDOL 5 MG TABLET. PO PRN (16:51)
[2019-12-02] MEDS: MELOXICAM 7.5 MG TABLET PO PRN (19:59)
[2019-12-02] MEDS: HALOPERIDOL 5 MG TABLET. PO SCH (20:57)
[2019-12-02] MEDS ORDERED: ZOLPIDEM 5 MG TABLET. PO PRN (22:30)
[2019-12-03 03:00] VITALS: BP 108/71
[2019-12-03 04:31] LABS: CALCIUM 8.4 mg/dL (8.5-10.1); GFR 87.7; POTASSIUM 3.9 mmol/L (3.5-5.1)
[2019-12-03 07:00] VITALS: BP 118/73
--- NOTE | 2019-12-03 10:05 | EEG ---
DATE OF SERVICE: 12/01/2019 EEG NUMBER: [id number]. OBJECTIVE: The patient is a 71-year-old male with altered mental status. DESCRIPTION: This is a digital study. Electrodes are placed according to the international 10-20 system. Bipolar and referential montages are available. Activation procedures typically include hyperventilation and intermittent photic stimulation. INTERPRETATION: The waking background consists of 5-6 Hz, 20-50 microvolt activity. There is very little reactivity. There is some muscle artifact. Sleep is not achieved. Hyperventilation is not performed. Intermittent photic stimulation is noncontributory. IMPRESSION: This electroencephalogram with the patient in an obtunded state is abnormal because of a moderate, diffuse disturbance of cerebral activity as may be seen in any of a variety of toxic or metabolic encephalopathies. There is no focal, paroxysmal, or epileptiform activity. Thank you for letting us help with the patient's care. LE BRIZUELA MD DR: SHILPI/grey JOB#: [id number] / [id number]
[2019-12-03 11:00] VITALS: BP 127/79
[2019-12-03] MEDS: NICOTINE 21MG PATCH. TD PRN (11:09)
[2019-12-03] MEDS: LORazepam 0.5 MG TABLET PO PRN ×2 (11:09→23:05)
[2019-12-03] MEDS: MELOXICAM 7.5 MG TABLET PO PRN ×2 (11:09→23:05)
[2019-12-03] MEDS: METHOCARBAMOL 500 MG TABLET PO PRN ×2 (11:10→21:25)
[2019-12-03] MEDS: HALOPERIDOL 5 MG TABLET. PO SCH ×2 (11:10→21:25)
[2019-12-03] MEDS: IV NORMAL SALINE 1000ML BAG 1,000 ML IV SCH ×2 (11:15→21:26)
--- NOTE | 2019-12-03 13:25 | PDOC ---
PROGRESS NOTES Chief Complaint Chief Complaint 1. Altered mental status, acute, bipolar decompensation secondary to medication non adherence 2. Left frontal lobe wedge-shaped hypoattenuation, may represent cytotoxic edema and related to subacute infarct although a component of vasogenic edema is possible. Recommend brain MRI with and without contrast to exclude underlying lesion. 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 TITI 5. Psychomotor agitation 6. POST tazer inc CPK Plan: follow recommendations from rehab consultant patient has been diagnosed with bipolar disorder and ran out of his meds NSAIDs and muscle relaxants to treat pain and discomfort from fighting with the police. further recommendations based on clinical course Haldol and Ativan as per psych rehab consultant regular diet History of Present Illness History of Present Illness 12/01: Calm during my visit, all his cocnerns addressed to the best of my abilities. Ran out of his bipolar meds about a week ago, he has had similar episodes in the past, denies marihuana abuse despite positive UDP 12/02: No acute events reported overnight, case discussed with nursing staff patient in no acute distress no complaints during my visit Vitals Vitals Vital Signs Date Time Temp Pulse Resp B/P (MAP) Pulse Ox O2 Delivery O2 Flow Rate FiO2 12/03/19 11:00 98.0 74 16 127/79 (95) 98 Room Air 98.0 Physical Exam General: Alert, Cooperative, No acute distress Heart: Regular rate, Normal S1, Normal S2 Lungs: Clear Abdomen: Normal bowel sounds, Soft, No tenderness Extremities: No cyanosis, No edema Skin: No significant lesion Labs LABS Laboratory Tests Test 12/03/19 04:00 Sodium Level 141 mmol/L (136-145) Potassium Level 3.9 mmol/L (3.5-5.1) Chloride Level 107 mmol/L (98-107) Carbon Dioxide Level 29 mmol/L (21-32) Anion Gap 5 (6-14) Blood Urea Nitrogen 13 mg/dL (8-26) Creatinine 1.0 mg/dL (0.7-1.3) Estimated GFR (Cockcroft-Gault) 87.7 Glucose Level 87 mg/dL (70-99) Calcium Level 8.4 mg/dL (8.5-10.1) Creatine Kinase 305 U/L (39-308) Review of Systems Review of Systems Pertinent as per HPI otherwise 10 point review of system is negative Assessment and Plan Assessmemt and Plan Problems Medical Problems: (1) Agitation Status: Acute (2) Altered mental status Status: Acute (3) Glioma of brain Status: Acute (4) Rhabdomyolysis Status: Acute Comment Review of Relevant I have reviewed the following items lauryn (where applicable) has been applied. Labs Laboratory Tests Test 12/02/19 04:00 12/02/19 05:00 12/03/19 04:00 Urine Collection Type Unknown Urine Color Barb Urine Clarity Clear Urine pH 6.0 (<5.0-8.0) Urine Specific [place] >=1.030 (1.000-1.030) Urine Protein Negative mg/dL (NEG-TRACE) Urine Glucose (UA) Negative mg/dL (NEG) Urine Ketones (Stick) Trace mg/dL (NEG) Urine Blood Negative (NEG) Urine Nitrite Negative (NEG) Urine Bilirubin Small (NEG) Urine Urobilinogen Dipstick 1.0 mg/dL (0.2 mg/dL) Urine Leukocyte Esterase Negative (NEG) Urine RBC Occ /HPF (0-2) Urine WBC 20-40 /HPF (0-4) Urine Squamous Epithelial Cells Occ /LPF Urine Bacteria 0 /HPF (0-FEW) Urine Hyaline Casts Few /HPF Urine Mucus Marked /LPF Urine Opiates Screen Neg (NEG) Urine Methadone Screen Neg (NEG) Urine Barbiturates Neg (NEG) Urine Phencyclidine Screen Neg (NEG) Urine Amphetamine/Methamphetamine Neg (NEG) Urine Benzodiazepines Screen Neg (NEG) Urine Cocaine Screen Neg (NEG) Urine Cannabinoids Screen Pos (NEG) Urine Ethyl Alcohol Neg (NEG) White Blood Count 6.0 x10^3/uL (4.0-11.0) Red Blood Count 4.06 x10^6/uL (4.30-5.70) Hemoglobin 13.1 g/dL (13.0-17.5) Hematocrit 38.1 % (39.0-53.0) Mean Corpuscular Volume 94 fL (79-100) Mean Corpuscular Hemoglobin 32 pg (25-35) Mean Corpuscular Hemoglobin Concent 34 g/dL (31-37) Red Cell Distribution Width 13.2 % (11.5-14.5) Platelet Count 184 x10^3/uL (140-400) Neutrophils (%) (Auto) 45 % (31-73) Lymphocytes (%) (Auto) 43 % (24-48) Monocytes (%) (Auto) 9 % (0-9) Eosinophils (%) (Auto) 3 % (0-3) Basophils (%) (Auto) 0 % (0-3) Neutrophils # (Auto) 2.7 x10^3/uL (1.8-7.7) Lymphocytes # (Auto) 2.5 x10^3/uL (1.0-4.8) Monocytes # (Auto) 0.5 x10^3/uL (0.0-1.1) Eosinophils # (Auto) 0.2 x10^3/uL (0.0-0.7) Basophils # (Auto) 0.0 x10^3/uL (0.0-0.2) Sodium Level 142 mmol/L (136-145) 141 mmol/L (136-145) Potassium Level 3.7 mmol/L (3.5-5.1) 3.9 mmol/L (3.5-5.1) Chloride Level 107 mmol/L (98-107) 107 mmol/L (98-107) Carbon Dioxide Level 27 mmol/L (21-32) 29 mmol/L (21-32) Anion Gap 8 (6-14) 5 (6-14) Blood Urea Nitrogen 15 mg/dL (8-26) 13 mg/dL (8-26) Creatinine 1.0 mg/dL (0.7-1.3) 1.0 mg/dL (0.7-1.3) Estimated GFR (Cockcroft-Gault) 87.7 87.7 BUN/Creatinine Ratio 15 (6-20) Glucose Level 97 mg/dL (70-99) 87 mg/dL (70-99) Calcium Level 8.0 mg/dL (8.5-10.1) 8.4 mg/dL (8.5-10.1) Total Bilirubin 0.3 mg/dL (0.2-1.0) Aspartate Amino Transf (AST/SGOT) 22 U/L (15-37) Alanine Aminotransferase (ALT/SGPT) 18 U/L (16-63) Alkaline Phosphatase 49 U/L (46-116) Total Protein 5.8 g/dL (6.4-8.2) Albumin 3.2 g/dL (3.4-5.0) Albumin/Globulin Ratio 1.2 (1.0-1.7) Creatine Kinase 305 U/L (39-308) Laboratory Tests Test 12/03/19 04:00 Sodium Level 141 mmol/L (136-145) Potassium Level 3.9 mmol/L (3.5-5.1) Chloride Level 107 mmol/L (98-107) Carbon Dioxide Level 29 mmol/L (21-32) Anion Gap 5 (6-14) Blood Urea Nitrogen 13 mg/dL (8-26) Creatinine 1.0 mg/dL (0.7-1.3) Estimated GFR (Cockcroft-Gault) 87.7 Glucose Level 87 mg/dL (70-99) Calcium Level 8.4 mg/dL (8.5-10.1) Creatine Kinase 305 U/L (39-308) Microbiology 12/02/19 Urine Culture - Final, Complete 12/01/19 Blood Culture - Preliminary, Resulted NO GROWTH AFTER 1 DAY Medications Current Medications Sodium Chloride 1,000 ml @ 1,000 mls/hr Q1H IV Last administered on 12/01/19at 11:58; Start 12/01/19 at 11:30; Stop 12/01/19 at 12:29; Status DC Haloperidol Lactate (Haldol Inj) 5 mg STK-MED ONCE .ROUTE ; Start 12/01/19 at 11:43; Stop 12/01/19 at 11:43; Status DC Lorazepam (Ativan Inj) 2 mg STK-MED ONCE .ROUTE ; Start 12/01/19 at 11:43; Stop 12/01/19 at 11:43; Status DC Diphenhydramine HCl (Benadryl) 50 mg 1X ONCE IM Last administered on 12/01/19at 11:55; Start 12/01/19 at 11:45; Stop 12/01/19 at 12:08; Status DC Lorazepam (Ativan Inj) 2 mg 1X ONCE IM Last administered on 12/01/19at 11:55; Start 12/01/19 at 11:45; Stop 12/01/19 at 12:08; Status DC Haloperidol Lactate (Haldol Inj) 5 mg 1X ONCE IM Last administered on 12/01/19at 11:55; Start 12/01/19 at 11:45; Stop 12/01/19 at 12:08; Status DC Diphenhydramine HCl (Benadryl) 50 mg STK-MED ONCE .ROUTE ; Start 12/01/19 at 11:43; Stop 12/01/19 at 11:44; Status DC Sodium Chloride 1,000 ml @ 1,000 mls/hr 1X ONCE IV Last administered on 12/01/19at 13:15; Start 12/01/19 at 13:15; Stop 12/01/19 at 14:14; Status DC Ondansetron HCl (Zofran) 4 mg PRN Q8HRS PRN IV NAUSEA/VOMITING; Start 12/01/19 at 13:30; Stop 12/02/19 at 11:34; Status DC Sodium Chloride (Normal Saline Flush) 3 ml QSHIFT PRN IV AFTER MEDS AND BLOOD DRAWS; Start 12/01/19 at 15:30 Sodium Chloride 1,000 ml @ 100 mls/hr Q10H IV Last administered on 12/02/19at 01:40; Start 12/01/19 at 15:18; Stop 12/02/19 at 07:23; Status DC Ondansetron HCl (Zofran) 4 mg PRN Q4HRS PRN IV NAUSEA/VOMITING; Start 12/01/19 at 15:30; Stop 12/02/19 at 16:26; Status DC Acetaminophen (Tylenol) 650 mg PRN Q4HRS PRN PO TEMP OVER 100.4F OR MILD PAIN; Start 12/01/19 at 15:30 Acetaminophen (Tylenol Supp) 650 mg PRN Q4HRS PRN NM TEMP OVER 100.4F OR MILD PAIN; Start 12/01/19 at 15:30 Al Hydroxide/Mg Hydroxide (Mylanta Plus Xs) 30 ml PRN DAILY PRN PO HEARTBURN / GAS; Start 12/01/19 at 15:30 Clonidine HCl (Catapres) 0.1 mg PRN Q6HRS PRN PO SBP>160 OR DBP>90; Start 12/01/19 at 15:30 Sodium Monofluorophosphate (Fleet Adult) 133 ml PRN DAILY PRN NM CONSTIPATION; Start 12/01/19 at 15:30 Docusate Sodium (Colace) 100 mg PRN BID PRN PO HARD STOOLS; Start 12/01/19 at 15:30 Albuterol Sulfate (Ventolin Neb Soln) 2.5 mg PRN Q4HRS PRN NEB SHORTNESS OF BREATH; Start 12/01/19 at 15:30 Guaifenesin (Robitussin) 200 mg PRN Q4HRS PRN PO COUGH; Start 12/01/19 at 15:30 Lorazepam (Ativan) 0.5 mg PRN Q4HRS PRN PO ANXIETY / AGITATION Last administered on 12/03/19 11:09; Start 12/01/19 at 15:30 Lorazepam (Ativan Inj) 2 mg PRN Q4HRS PRN IV ANXIETY / AGITATION; Start 12/01/19 at 15:30 Enoxaparin Sodium (Lovenox 40mg Syringe) 40 mg Q24H SQ Last administered on 12/02/19at 14:21; Start 12/01/19 at 15:30 Ketorolac Tromethamine (Toradol 30mg Vial) 30 mg 1X ONCE IVP Last administered on 12/02/19 08:25; Start 12/02/19 at 07:30; Stop 12/02/19 at 07:31; Status DC Methocarbamol (Robaxin) 1,000 mg PRN Q8HRS PRN PO MUSCLE SPASMS Last administered on 12/03/19 11:10; Start 12/02/19 at 07:30 Sodium Chloride 1,000 ml @ 100 mls/hr Q10H IV Last administered on 12/03/19 11:15; Start 12/02/19 at 13:15 Nicotine (Nicoderm Cq 21mg) 1 patch PRN DAILY PRN TD SMOKING CESSATION Last administered on 12/03/19 11:09; Start 12/02/19 at 13:30 Haloperidol (Haldol) 5 mg BID PO Last administered on 12/03/19 11:10; Start 12/02/19 at 21:00 Haloperidol (Haldol) 5 mg PRN Q6HRS PRN PO AGITATION Last administered on 12/02/19 16:51; Start 12/02/19 at 16:15 Lorazepam (Ativan) 1 mg PRN Q6HRS PRN PO ANXIETY / AGITATION Last administered on 12/02/19 16:51; Start 12/02/19 at 16:15 Meloxicam (Mobic) 7.5 mg BID PRN PO PAIN Last administered on 7/26/20at 11:09; Start 12/02/19 at 18:15 Zolpidem Tartrate (Ambien) 5 mg 1X PRN PO INSOMNIA Last administered on 12/02/19at 22:38; Start 12/02/19 at 22:30; Stop 12/02/19 at 23:00; Status DC Active Scripts Active Reported Zoloft (Sertraline Hcl) 100 Mg Tablet 1 Tab PO DAILY Vistaril (Hydroxyzine Pamoate) 50 Mg Capsule 50 Mg PO TID PRN Vitals/I & O Vital Sign - Last 24 Hours 12/02/19 12/02/19 12/02/19 12/02/19 15:39 19:00 19:07 19:30 Temp 97.9 97.9 98.0 97.9 97.9 98.0 Pulse 72 68 69 Resp 16 18 14 B/P (MAP) 129/62 (84) 131/80 (97) 126/71 (89) Pulse Ox 99 98 98 O2 Delivery Room Air Room Air Room Air Room Air 12/02/19 12/03/19 12/03/19 12/03/19 23:00 03:00 07:00 08:00 Temp 98.0 97.7 97.5 98.0 97.7 97.5 Pulse 83 56 76 Resp 18 16 16 B/P (MAP) 128/84 (99) 108/71 (83) 118/73 (88) Pulse Ox 97 97 97 O2 Delivery Room Air Room Air Room Air Room Air 12/03/19 11:00 Temp 98.0 98.0 Pulse 74 Resp 16 B/P (MAP) 127/79 (95) Pulse Ox 98 O2 Delivery Room Air Intake and Output 12/02/19 12/02/19 12/03/19 15:00 23:00 07:00 Intake Total 850 ml 400 ml 1120 ml Output Total 600 ml 150 ml 3000 ml Balance 250 ml 250 ml -1880 ml Justicifation of Admission Dx: Justifications for Admission: Justification of Admission Dx: Yes Sepsis: Altered Mental Status EDISON SIMMS MD Dec 03, 2019 13:25
--- NOTE | 2019-12-03 14:15 | PDOC ---
SUBJECTIVE ROS stable OBJECTIVE Vital Signs Vital Signs Date Time Temp Pulse Resp B/P (MAP) Pulse Ox O2 Delivery O2 Flow Rate FiO2 12/03/19 11:00 98.0 74 16 127/79 (95) 98 Room Air 98.0 I & 0 Intake and Output 12/03/19 07:00 Intake Total 2370 ml Output Total 3750 ml Balance -1380 ml Intake Oral 2370 ml Output Urine Total 3750 ml PHYSICAL EXAM Physical Exam General: No acute distress HEENT: Atraumatic, OM moist Neck supple Lungs: Normal air movement Heart: RRR Abdomen: Normal bowel sounds, Soft, No tenderness Extremities: No cyanosis, No edema Skin: No significant lesion, No rash Neuro: Cranial nerves 3-12 NL No matias DIAGNOSIS/ASSESSMENT Assessment & Plan TITI - Pre-renal , Mild Rhabdo , resolved E-Lytes stable,Supportive care , Strict I/O - dw RN Rhabdo- Mild , Post ?Tasered , improving ?UA WBC + - per Primary acute, bipolar decompensation secondary to medication non adherence Psych consulted Left frontal lobe wedge-shaped hypoattenuation, may represent cytotoxic edema and related to subacute infarct although a component of vasogenic edema is possible. Recommend brain MRI with and without contrast to exclude underlying lesion. HX Glioma ? records pending Psychomotor agitation Drug use- Pt denies, UDS positive for Cannabinoids Will sign off COMMENT/RELEVANT DATA Meds Current Medications Medications (Trade) Dose Ordered Sig/Trinh Start Time Stop Time Status Last Admin Dose Admin Acetaminophen (Tylenol Supp) 650 mg PRN Q4HRS PRN 12/01/19 15:30 Acetaminophen (Tylenol) 650 mg PRN Q4HRS PRN 12/01/19 15:30 Al Hydroxide/Mg Hydroxide (Mylanta Plus Xs) 30 ml PRN DAILY PRN 12/01/19 15:30 Albuterol Sulfate (Ventolin Neb Soln) 2.5 mg PRN Q4HRS PRN 12/01/19 15:30 Clonidine HCl (Catapres) 0.1 mg PRN Q6HRS PRN 12/01/19 15:30 Diphenhydramine HCl (Benadryl) 50 mg STK-MED ONCE 12/01/19 11:43 12/01/19 11:44 DC Docusate Sodium (Colace) 100 mg PRN BID PRN 12/01/19 15:30 Enoxaparin Sodium (Lovenox 40mg Syringe) 40 mg Q24H 12/01/19 15:30 12/02/19 14:21 40 MG Guaifenesin (Robitussin) 200 mg PRN Q4HRS PRN 12/01/19 15:30 Haloperidol (Haldol) 5 mg PRN Q6HRS PRN 12/02/19 16:15 12/02/19 16:51 5 MG Haloperidol Lactate (Haldol Inj) 5 mg 1X ONCE 12/01/19 11:45 12/01/19 12:08 DC 12/01/19 11:55 5 MG Ketorolac Tromethamine (Toradol 30mg Vial) 30 mg 1X ONCE 12/02/19 07:30 12/02/19 07:31 DC 12/02/19 08:25 30 MG Lorazepam (Ativan Inj) 2 mg PRN Q4HRS PRN 12/01/19 15:30 Lorazepam (Ativan) 1 mg PRN Q6HRS PRN 12/02/19 16:15 12/02/19 16:51 1 MG Meloxicam (Mobic) 7.5 mg BID PRN 12/02/19 18:15 12/03/19 11:09 7.5 MG Methocarbamol (Robaxin) 1,000 mg PRN Q8HRS PRN 12/02/19 07:30 12/03/19 11:10 1,000 MG Nicotine (Nicoderm Cq 21mg) 1 patch PRN DAILY PRN 12/02/19 13:30 12/03/19 11:09 1 PATCH Ondansetron HCl (Zofran) 4 mg PRN Q4HRS PRN 12/01/19 15:30 12/02/19 16:26 DC Sodium Monofluorophosphate (Fleet Adult) 133 ml PRN DAILY PRN 12/01/19 15:30 Sodium Chloride 1,000 ml @ 100 mls/hr Q10H 12/02/19 13:15 12/03/19 11:15 100 MLS/HR Sodium Chloride (Normal Saline Flush) 3 ml QSHIFT PRN 12/01/19 15:30 Zolpidem Tartrate (Ambien) 5 mg 1X PRN 12/02/19 22:30 12/02/19 23:00 DC 12/02/19 22:38 5 MG Lab Laboratory Tests Test 12/03/19 04:00 Sodium Level 141 mmol/L (136-145) Potassium Level 3.9 mmol/L (3.5-5.1) Chloride Level 107 mmol/L (98-107) Carbon Dioxide Level 29 mmol/L (21-32) Anion Gap 5 (6-14) Blood Urea Nitrogen 13 mg/dL (8-26) Creatinine 1.0 mg/dL (0.7-1.3) Estimated GFR (Cockcroft-Gault) 87.7 Glucose Level 87 mg/dL (70-99) Calcium Level 8.4 mg/dL (8.5-10.1) Creatine Kinase 305 U/L (39-308) Results All relevant outside records, renal labs, imaging studies, telemetry/EKG's were reviewed. Justicifation of Admission Dx: Justifications for Admission: Justification of Admission Dx: Yes Sepsis: Altered Mental Status LANE ACOSTA MD Dec 03, 2019 14:15
[2019-12-03 15:00] VITALS: BP 121/77
--- NOTE | 2019-12-03 17:02 | PDOC ---
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 Rhabdomyolysis, CPK 305 today Plan Radiology to burn a CD so patient can have his main physician compare. Ask for images clouded for our radiologist to compare Otherwise, as per psychiatry. Neurology will see as needed rest of hospital stay Subjective No complaints, wants to go home Objective Vital Signs Date Time Temp Pulse Resp B/P (MAP) Pulse Ox O2 Delivery O2 Flow Rate FiO2 12/03/19 15:00 97.8 77 16 121/77 (92) 98 Room Air 97.8 Intake and Output 12/03/19 07:00 Intake Total 2370 ml Output Total 3750 ml Balance -1380 ml Intake Oral 2370 ml Output Urine Total 3750 ml PHYSICAL EXAM Alert. Oriented to time, place and person. PERRL. EOMI. CN: no focal findings. Muscle tone: normal. Muscle strength: 5/5 DTR: 2+ Plantar reflex: Flexor Gait: normal Sensory exam: no abnormal findings. No cerebellar signs elicited. Review of Relevant I have reviewed the following items lauryn (where applicable) has been applied. Labs Laboratory Tests Test 12/02/19 04:00 12/02/19 05:00 12/03/19 04:00 Urine Collection Type Unknown Urine Color Barb Urine Clarity Clear Urine pH 6.0 (<5.0-8.0) Urine Specific [place] >=1.030 (1.000-1.030) Urine Protein Negative mg/dL (NEG-TRACE) Urine Glucose (UA) Negative mg/dL (NEG) Urine Ketones (Stick) Trace mg/dL (NEG) Urine Blood Negative (NEG) Urine Nitrite Negative (NEG) Urine Bilirubin Small (NEG) Urine Urobilinogen Dipstick 1.0 mg/dL (0.2 mg/dL) Urine Leukocyte Esterase Negative (NEG) Urine RBC Occ /HPF (0-2) Urine WBC 20-40 /HPF (0-4) Urine Squamous Epithelial Cells Occ /LPF Urine Bacteria 0 /HPF (0-FEW) Urine Hyaline Casts Few /HPF Urine Mucus Marked /LPF Urine Opiates Screen Neg (NEG) Urine Methadone Screen Neg (NEG) Urine Barbiturates Neg (NEG) Urine Phencyclidine Screen Neg (NEG) Urine Amphetamine/Methamphetamine Neg (NEG) Urine Benzodiazepines Screen Neg (NEG) Urine Cocaine Screen Neg (NEG) Urine Cannabinoids Screen Pos (NEG) Urine Ethyl Alcohol Neg (NEG) White Blood Count 6.0 x10^3/uL (4.0-11.0) Red Blood Count 4.06 x10^6/uL (4.30-5.70) Hemoglobin 13.1 g/dL (13.0-17.5) Hematocrit 38.1 % (39.0-53.0) Mean Corpuscular Volume 94 fL (79-100) Mean Corpuscular Hemoglobin 32 pg (25-35) Mean Corpuscular Hemoglobin Concent 34 g/dL (31-37) Red Cell Distribution Width 13.2 % (11.5-14.5) Platelet Count 184 x10^3/uL (140-400) Neutrophils (%) (Auto) 45 % (31-73) Lymphocytes (%) (Auto) 43 % (24-48) Monocytes (%) (Auto) 9 % (0-9) Eosinophils (%) (Auto) 3 % (0-3) Basophils (%) (Auto) 0 % (0-3) Neutrophils # (Auto) 2.7 x10^3/uL (1.8-7.7) Lymphocytes # (Auto) 2.5 x10^3/uL (1.0-4.8) Monocytes # (Auto) 0.5 x10^3/uL (0.0-1.1) Eosinophils # (Auto) 0.2 x10^3/uL (0.0-0.7) Basophils # (Auto) 0.0 x10^3/uL (0.0-0.2) Sodium Level 142 mmol/L (136-145) 141 mmol/L (136-145) Potassium Level 3.7 mmol/L (3.5-5.1) 3.9 mmol/L (3.5-5.1) Chloride Level 107 mmol/L (98-107) 107 mmol/L (98-107) Carbon Dioxide Level 27 mmol/L (21-32) 29 mmol/L (21-32) Anion Gap 8 (6-14) 5 (6-14) Blood Urea Nitrogen 15 mg/dL (8-26) 13 mg/dL (8-26) Creatinine 1.0 mg/dL (0.7-1.3) 1.0 mg/dL (0.7-1.3) Estimated GFR (Cockcroft-Gault) 87.7 87.7 BUN/Creatinine Ratio 15 (6-20) Glucose Level 97 mg/dL (70-99) 87 mg/dL (70-99) Calcium Level 8.0 mg/dL (8.5-10.1) 8.4 mg/dL (8.5-10.1) Total Bilirubin 0.3 mg/dL (0.2-1.0) Aspartate Amino Transf (AST/SGOT) 22 U/L (15-37) Alanine Aminotransferase (ALT/SGPT) 18 U/L (16-63) Alkaline Phosphatase 49 U/L (46-116) Total Protein 5.8 g/dL (6.4-8.2) Albumin 3.2 g/dL (3.4-5.0) Albumin/Globulin Ratio 1.2 (1.0-1.7) Creatine Kinase 305 U/L (39-308) Laboratory Tests Test 12/03/19 04:00 Sodium Level 141 mmol/L (136-145) Potassium Level 3.9 mmol/L (3.5-5.1) Chloride Level 107 mmol/L (98-107) Carbon Dioxide Level 29 mmol/L (21-32) Anion Gap 5 (6-14) Blood Urea Nitrogen 13 mg/dL (8-26) Creatinine 1.0 mg/dL (0.7-1.3) Estimated GFR (Cockcroft-Gault) 87.7 Glucose Level 87 mg/dL (70-99) Calcium Level 8.4 mg/dL (8.5-10.1) Creatine Kinase 305 U/L (39-308) Microbiology 12/02/19 Urine Culture - Final, Complete 12/01/19 Blood Culture - Preliminary, Resulted NO GROWTH AFTER 2 DAYS Medications Current Medications Sodium Chloride 1,000 ml @ 1,000 mls/hr Q1H IV Last administered on 12/01/19at 11:58; Start 12/01/19 at 11:30; Stop 12/01/19 at 12:29; Status DC Haloperidol Lactate (Haldol Inj) 5 mg STK-MED ONCE .ROUTE ; Start 12/01/19 at 11:43; Stop 12/01/19 at 11:43; Status DC Lorazepam (Ativan Inj) 2 mg STK-MED ONCE .ROUTE ; Start 12/01/19 at 11:43; Stop 12/01/19 at 11:43; Status DC Diphenhydramine HCl (Benadryl) 50 mg 1X ONCE IM Last administered on 12/01/19at 11:55; Start 12/01/19 at 11:45; Stop 12/01/19 at 12:08; Status DC Lorazepam (Ativan Inj) 2 mg 1X ONCE IM Last administered on 12/01/19at 11:55; Start 12/01/19 at 11:45; Stop 12/01/19 at 12:08; Status DC Haloperidol Lactate (Haldol Inj) 5 mg 1X ONCE IM Last administered on 12/01/19at 11:55; Start 12/01/19 at 11:45; Stop 12/01/19 at 12:08; Status DC Diphenhydramine HCl (Benadryl) 50 mg STK-MED ONCE .ROUTE ; Start 12/01/19 at 11:43; Stop 12/01/19 at 11:44; Status DC Sodium Chloride 1,000 ml @ 1,000 mls/hr 1X ONCE IV Last administered on 12/01/19at 13:15; Start 12/01/19 at 13:15; Stop 12/01/19 at 14:14; Status DC Ondansetron HCl (Zofran) 4 mg PRN Q8HRS PRN IV NAUSEA/VOMITING; Start 12/01/19 at 13:30; Stop 12/02/19 at 11:34; Status DC Sodium Chloride (Normal Saline Flush) 3 ml QSHIFT PRN IV AFTER MEDS AND BLOOD DRAWS; Start 12/01/19 at 15:30 Sodium Chloride 1,000 ml @ 100 mls/hr Q10H IV Last administered on 12/02/19at 01:40; Start 12/01/19 at 15:18; Stop 12/02/19 at 07:23; Status DC Ondansetron HCl (Zofran) 4 mg PRN Q4HRS PRN IV NAUSEA/VOMITING; Start 12/01/19 at 15:30; Stop 12/02/19 at 16:26; Status DC Acetaminophen (Tylenol) 650 mg PRN Q4HRS PRN PO TEMP OVER 100.4F OR MILD PAIN; Start 12/01/19 at 15:30 Acetaminophen (Tylenol Supp) 650 mg PRN Q4HRS PRN HI TEMP OVER 100.4F OR MILD PAIN; Start 12/01/19 at 15:30 Al Hydroxide/Mg Hydroxide (Mylanta Plus Xs) 30 ml PRN DAILY PRN PO HEARTBURN / GAS; Start 12/01/19 at 15:30 Clonidine HCl (Catapres) 0.1 mg PRN Q6HRS PRN PO SBP>160 OR DBP>90; Start 12/01/19 at 15:30 Sodium Monofluorophosphate (Fleet Adult) 133 ml PRN DAILY PRN [place] CONSTIPATION; Start 12/01/19 at 15:30 Docusate Sodium (Colace) 100 mg PRN BID PRN PO HARD STOOLS; Start 12/01/19 at 15:30 Albuterol Sulfate (Ventolin Neb Soln) 2.5 mg PRN Q4HRS PRN NEB SHORTNESS OF BREATH; Start 12/01/19 at 15:30 Guaifenesin (Robitussin) 200 mg PRN Q4HRS PRN PO COUGH; Start 12/01/19 at 15:30 Lorazepam (Ativan) 0.5 mg PRN Q4HRS PRN PO ANXIETY / AGITATION Last administered on 12/03/19at 11:09; Start 12/01/19 at 15:30 Lorazepam (Ativan Inj) 2 mg PRN Q4HRS PRN IV ANXIETY / AGITATION; Start 12/01/19 at 15:30 Enoxaparin Sodium (Lovenox 40mg Syringe) 40 mg Q24H SQ Last administered on 12/02/19at 14:21; Start 12/01/19 at 15:30 Ketorolac Tromethamine (Toradol 30mg Vial) 30 mg 1X ONCE IVP Last administered on 12/02/19at 08:25; Start 12/02/19 at 07:30; Stop 12/02/19 at 07:31; Status DC Methocarbamol (Robaxin) 1,000 mg PRN Q8HRS PRN PO MUSCLE SPASMS Last administered on 12/03/19 11:10; Start 12/02/19 at 07:30 Sodium Chloride 1,000 ml @ 100 mls/hr Q10H IV Last administered on 12/03/19 11:15; Start 12/02/19 at 13:15 Nicotine (Nicoderm Cq 21mg) 1 patch PRN DAILY PRN TD SMOKING CESSATION Last administered on 12/03/19 11:09; Start 12/02/19 at 13:30 Haloperidol (Haldol) 5 mg BID PO Last administered on 12/03/19 11:10; Start 12/02/19 at 21:00 Haloperidol (Haldol) 5 mg PRN Q6HRS PRN PO AGITATION Last administered on 12/02/19 16:51; Start 12/02/19 at 16:15 Lorazepam (Ativan) 1 mg PRN Q6HRS PRN PO ANXIETY / AGITATION Last administered on 12/02/19 16:51; Start 12/02/19 at 16:15 Meloxicam (Mobic) 7.5 mg BID PRN PO PAIN Last administered on 12/03/19 11:09; Start 12/02/19 at 18:15 Zolpidem Tartrate (Ambien) 5 mg 1X PRN PO INSOMNIA Last administered on 12/02/19 22:38; Start 12/02/19 at 22:30; Stop 12/02/19 at 23:00; Status DC Active Scripts Active Reported Zoloft (Sertraline Hcl) 100 Mg Tablet 1 Tab PO DAILY Vistaril (Hydroxyzine Pamoate) 50 Mg Capsule 50 Mg PO TID PRN Vitals/I & O Vital Sign - Last 24 Hours 12/02/19 12/02/19 12/02/19 12/02/19 19:00 19:07 19:30 23:00 Temp 97.9 98.0 98.0 97.9 98.0 98.0 Pulse 68 69 83 Resp 18 14 18 B/P (MAP) 131/80 (97) 126/71 (89) 128/84 (99) Pulse Ox 98 98 97 O2 Delivery Room Air Room Air Room Air Room Air 12/03/19 12/03/19 12/03/19 12/03/19 03:00 07:00 08:00 11:00 Temp 97.7 97.5 98.0 97.7 97.5 98.0 Pulse 56 76 74 Resp 16 16 16 B/P (MAP) 108/71 (83) 118/73 (88) 127/79 (95) Pulse Ox 97 97 98 O2 Delivery Room Air Room Air Room Air Room Air 12/03/19 15:00 Temp 97.8 97.8 Pulse 77 Resp 16 B/P (MAP) 121/77 (92) Pulse Ox 98 O2 Delivery Room Air Intake and Output 12/02/19 12/02/19 12/03/19 15:00 23:00 07:00 Intake Total 850 ml 400 ml 1120 ml Output Total 600 ml 150 ml 3000 ml Balance 250 ml 250 ml -1880 ml Justicifation of Admission Dx: Justifications for Admission: Justification of Admission Dx: Yes Sepsis: Altered Mental Status LE BRIZUELA MD Dec 03, 2019 17:02
[2019-12-03] MEDS: ENOXAPARIN 40 MG/0.4 ML SYRINGE. SQ SCH (17:22)
[2019-12-03] MEDS: HALOPERIDOL 5 MG TABLET. PO PRN (17:23)
[2019-12-03 19:00] VITALS: BP 141/95
[2019-12-03 23:00] VITALS: BP 119/76
[2019-12-04] MEDS: LORazepam 0.5 MG TABLET PO PRN ×2 (05:21→09:41)
[2019-12-04] MEDS: METHOCARBAMOL 500 MG TABLET PO PRN (05:21)
[2019-12-04] MEDS: IV NORMAL SALINE 1000ML BAG 1,000 ML IV SCH ×2 (05:23→15:15)
[2019-12-04 07:00] VITALS: BP 113/67
--- NOTE | 2019-12-04 08:39 | NUR ---
Patient sleeping, VSS, does not want to wake up for medications or have physical assessment completed. Will attempt again. Will continue to monitor.
[2019-12-04] MEDS: HALOPERIDOL 5 MG TABLET. PO SCH (09:41)
[2019-12-04] MEDS: NICOTINE 21MG PATCH. TD PRN (09:41)
--- NOTE | 2019-12-04 09:50 | EKG ---
[facility] [address] [place] [address] Test Date: 2019-12-01 Test Time: 11:32:49 Pat Name: DEVORA HERNANDEZ Department: Room: Gender: Slot Editor: SHAY : 1990 Requested By: RAMU FORTUNE Order Number: [id number] Reading MD: Measurements Intervals [place] Rate: 83 P: 0 IL: 130 QRS: 65 QRSD: 86 T: 69 QT: 352 QTc: 414 Interpretive Statements SINUS RHYTHM S1,S2,S3 PATTERN OTHERWISE NORMAL ECG RI6.01 No previous ECG available for comparison
--- NOTE | 2019-12-04 10:20 | NUR ---
SW following. Discussed with RN, pt still 1:1. Jeramy from PAT coming to see pt today. SW will continue to follow.
[2019-12-04 11:09] VITALS: BP 115/79
--- NOTE | 2019-12-04 11:26 | NUR ---
Patient stated " I want to leave today. What do I need to do to leave today? I dont want to stay here any more." Patient was educated on need to stay. Patient stated " I want to leave today, I dont need to be here. I need my IV taken out. If you cant take it out, I will." IV was taken out by RN. RN stated to patient " I will let the doctors know that you would like to leave. "
--- NOTE | 2019-12-04 11:27 | PDOC ---
PROGRESS NOTES Chief Complaint Chief Complaint 1. Altered mental status, acute, bipolar decompensation secondary to medication non adherence 2. Left frontal lobe wedge-shaped hypoattenuation, may represent cytotoxic edema and related to subacute infarct although a component of vasogenic edema is possible. Recommend brain MRI with and without contrast to exclude underlying lesion. 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 TITI 5. Psychomotor agitation 6. POST tazer inc CPK Plan: follow recommendations from media sales consultant patient has been diagnosed with bipolar disorder and ran out of his meds NSAIDs and muscle relaxants to treat pain and discomfort from fighting with the police. further recommendations based on clinical course Haldol and Ativan as per psych media sales consultant regular diet History of Present Illness History of Present Illness 12/01: Calm during my visit, all his cocnerns addressed to the best of my abilities. Ran out of his bipolar meds about a week ago, he has had similar episodes in the past, denies marihuana abuse despite positive UDP 12/02: No acute events reported overnight, case discussed with nursing staff patient in no acute distress no complaints during my visit 12/03: No acute events reported overnight, case discussed with nursing staff patient in no acute distress no complaints during my visit, patient continues to sleep most of the time. Vitals Vitals Vital Signs Date Time Temp Pulse Resp B/P (MAP) Pulse Ox O2 Delivery O2 Flow Rate FiO2 12/04/19 11:09 97.7 74 18 115/79 (91) 98 Room Air 97.7 Physical Exam General: Alert, Cooperative, No acute distress Heart: Regular rate, Normal S1, Normal S2 Lungs: Clear Abdomen: Normal bowel sounds, Soft, No tenderness Extremities: No cyanosis, No edema Skin: No significant lesion Assessment and Plan Assessmemt and Plan Problems Medical Problems: (1) Agitation Status: Acute (2) Altered mental status Status: Acute (3) Glioma of brain Status: Acute (4) Rhabdomyolysis Status: Acute Comment Review of Relevant I have reviewed the following items lauryn (where applicable) has been applied. Labs Laboratory Tests Test 12/03/19 04:00 Sodium Level 141 mmol/L (136-145) Potassium Level 3.9 mmol/L (3.5-5.1) Chloride Level 107 mmol/L (98-107) Carbon Dioxide Level 29 mmol/L (21-32) Anion Gap 5 (6-14) Blood Urea Nitrogen 13 mg/dL (8-26) Creatinine 1.0 mg/dL (0.7-1.3) Estimated GFR (Cockcroft-Gault) 87.7 Glucose Level 87 mg/dL (70-99) Calcium Level 8.4 mg/dL (8.5-10.1) Creatine Kinase 305 U/L (39-308) Microbiology 12/02/19 Urine Culture - Final, Complete 12/01/19 Blood Culture - Preliminary, Resulted NO GROWTH AFTER 2 DAYS Medications Current Medications Sodium Chloride 1,000 ml @ 1,000 mls/hr Q1H IV Last administered on 12/01/19at 11:58; Start 12/01/19 at 11:30; Stop 12/01/19 at 12:29; Status DC Haloperidol Lactate (Haldol Inj) 5 mg STK-MED ONCE .ROUTE ; Start 12/01/19 at 11:43; Stop 12/01/19 at 11:43; Status DC Lorazepam (Ativan Inj) 2 mg STK-MED ONCE .ROUTE ; Start 12/01/19 at 11:43; Stop 12/01/19 at 11:43; Status DC Diphenhydramine HCl (Benadryl) 50 mg 1X ONCE IM Last administered on 12/01/19at 11:55; Start 12/01/19 at 11:45; Stop 12/01/19 at 12:08; Status DC Lorazepam (Ativan Inj) 2 mg 1X ONCE IM Last administered on 12/01/19at 11:55; Start 12/01/19 at 11:45; Stop 12/01/19 at 12:08; Status DC Haloperidol Lactate (Haldol Inj) 5 mg 1X ONCE IM Last administered on 12/01/19at 11:55; Start 12/01/19 at 11:45; Stop 12/01/19 at 12:08; Status DC Diphenhydramine HCl (Benadryl) 50 mg STK-MED ONCE .ROUTE ; Start 12/01/19 at 11:43; Stop 12/01/19 at 11:44; Status DC Sodium Chloride 1,000 ml @ 1,000 mls/hr 1X ONCE IV Last administered on 12/01/19at 13:15; Start 12/01/19 at 13:15; Stop 12/01/19 at 14:14; Status DC Ondansetron HCl (Zofran) 4 mg PRN Q8HRS PRN IV NAUSEA/VOMITING; Start 12/01/19 at 13:30; Stop 12/02/19 at 11:34; Status DC Sodium Chloride (Normal Saline Flush) 3 ml QSHIFT PRN IV AFTER MEDS AND BLOOD DRAWS; Start 12/01/19 at 15:30 Sodium Chloride 1,000 ml @ 100 mls/hr Q10H IV Last administered on 12/02/19at 01:40; Start 12/01/19 at 15:18; Stop 12/02/19 at 07:23; Status DC Ondansetron HCl (Zofran) 4 mg PRN Q4HRS PRN IV NAUSEA/VOMITING; Start 12/01/19 at 15:30; Stop 12/02/19 at 16:26; Status DC Acetaminophen (Tylenol) 650 mg PRN Q4HRS PRN PO TEMP OVER 100.4F OR MILD PAIN; Start 12/01/19 at 15:30 Acetaminophen (Tylenol Supp) 650 mg PRN Q4HRS PRN IN TEMP OVER 100.4F OR MILD PAIN; Start 12/01/19 at 15:30 Al Hydroxide/Mg Hydroxide (Mylanta Plus Xs) 30 ml PRN DAILY PRN PO HEARTBURN / GAS; Start 12/01/19 at 15:30 Clonidine HCl (Catapres) 0.1 mg PRN Q6HRS PRN PO SBP>160 OR DBP>90; Start 12/01/19 at 15:30 Sodium Monofluorophosphate (Fleet Adult) 133 ml PRN DAILY PRN IN CONSTIPATION; Start 12/01/19 at 15:30 Docusate Sodium (Colace) 100 mg PRN BID PRN PO HARD STOOLS; Start 12/01/19 at 15:30 Albuterol Sulfate (Ventolin Neb Soln) 2.5 mg PRN Q4HRS PRN NEB SHORTNESS OF BREATH; Start 12/01/19 at 15:30 Guaifenesin (Robitussin) 200 mg PRN Q4HRS PRN PO COUGH; Start 12/01/19 at 15:30 Lorazepam (Ativan) 0.5 mg PRN Q4HRS PRN PO ANXIETY. Last administered on 12/04/19at 09:41; Start 12/01/19 at 15:30 Lorazepam (Ativan Inj) 2 mg PRN Q4HRS PRN IV ANXIETY / AGITATION; Start 12/01/19 at 15:30 Enoxaparin Sodium (Lovenox 40mg Syringe) 40 mg Q24H SQ Last administered on 12/03/19 17:22; Start 12/01/19 at 15:30 Ketorolac Tromethamine (Toradol 30mg Vial) 30 mg 1X ONCE IVP Last administered on 12/02/19at 08:25; Start 12/02/19 at 07:30; Stop 12/02/19 at 07:31; Status DC Methocarbamol (Robaxin) 1,000 mg PRN Q8HRS PRN PO MUSCLE SPASMS Last administered on 12/04/19 05:21; Start 12/02/19 at 07:30 Sodium Chloride 1,000 ml @ 100 mls/hr Q10H IV Last administered on 12/04/19 05:23; Start 12/02/19 at 13:15 Nicotine (Nicoderm Cq 21mg) 1 patch PRN DAILY PRN TD SMOKING CESSATION Last administered on 12/04/19 09:41; Start 12/02/19 at 13:30 Haloperidol (Haldol) 5 mg BID PO Last administered on 12/04/19 09:41; Start 12/02/19 at 21:00 Haloperidol (Haldol) 5 mg PRN Q6HRS PRN PO AGITATION Last administered on 12/03/19 17:23; Start 12/02/19 at 16:15 Lorazepam (Ativan) 1 mg PRN Q6HRS PRN PO See comments Last administered on 12/03/19 17:23; Start 12/02/19 at 16:15 Meloxicam (Mobic) 7.5 mg BID PRN PO PAIN Last administered on 12/03/19 23:05; Start 12/02/19 at 18:15 Zolpidem Tartrate (Ambien) 5 mg 1X PRN PO INSOMNIA Last administered on 12/02/19 22:38; Start 12/02/19 at 22:30; Stop 12/02/19 at 23:00; Status DC Active Scripts Active Reported Zoloft (Sertraline Hcl) 100 Mg Tablet 1 Tab PO DAILY Vistaril (Hydroxyzine Pamoate) 50 Mg Capsule 50 Mg PO TID PRN Vitals/I & O Vital Sign - Last 24 Hours 12/03/19 12/03/19 12/03/19 12/03/19 15:00 19:00 19:30 23:00 Temp 97.8 97.6 97.9 97.8 97.6 97.9 Pulse 77 78 91 Resp 16 18 16 B/P (MAP) 121/77 (92) 141/95 (110) 119/76 (90) Pulse Ox 98 98 97 O2 Delivery Room Air Room Air Room Air Room Air 12/04/19 12/04/19 07:00 11:09 Temp 97.5 97.7 97.5 97.7 Pulse 71 74 Resp 16 18 B/P (MAP) 113/67 (82) 115/79 (91) Pulse Ox 99 98 O2 Delivery Room Air Room Air Intake and Output 12/03/19 12/03/19 12/04/19 15:00 23:00 07:00 Intake Total 250 ml Output Total 550 ml 350 ml 1450 ml Balance -550 ml -350 ml -1200 ml Justicifation of Admission Dx: Justifications for Admission: Justification of Admission Dx: Yes Sepsis: Altered Mental Status EDISON SIMMS MD Dec 04, 2019 11:27
--- NOTE | 2019-12-04 13:00 | NUR ---
Paged Dr. Alba. Awaiting call back.
[2019-12-04 15:09] VITALS: BP 138/80
[2019-12-04] MEDS: ENOXAPARIN 40 MG/0.4 ML SYRINGE. SQ SCH (15:30)
--- NOTE | 2019-12-04 16:03 | NUR ---
Patient left AMA. Patient was educated on why hospitalization was needed. Patient insistent on leave. Patient signed AMA paperwork, stated he had no questions. Dr. Alba present when patient stated ride was here. Patient stated he would leave whether or not he was discharged. Two older gentlemen present as well. One gentleman identified himself as Axel, delivery truck driver heavy for Mr. Flowers. RN has attempted to call case finishing machine adjuster, but unable to reach case finishing machine adjuster at this time. Plastics Engineering Teacher, Axel, stated Mr. Flowers called him and gave him directions to central supply technician patient. Patient refused to received images on a disk, patient stated he was not going to follow up and did not need images from any one. Patient did not have shirt, upper body cover provided. Patient was walked out by security and 1:1 staff along with drivers.
--- NOTE | 2019-12-04 16:10 | PDOC3 ---
Discharge Summary Visit Information Date of Admission: Dec 01, 2019 Date of Discharge: Dec 04, 2019 Admitting Diagnosis Comment: 1. Altered mental status, acute 2. Left frontal lobe wedge-shaped hypoattenuation, may represent cytotoxic edema and related to subacute infarct although a component of vasogenic edema is possible. Recommend brain MRI with and without contrast to exclude underlying lesion. 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 TITI 5. Psychomotor agitation 6. POST tazer inc CPK Final Diagnosis Problems Medical Problems: (1) Agitation Status: Acute (2) Altered mental status Status: Acute (3) Glioma of brain Status: Acute (4) Rhabdomyolysis Status: Acute 1. Altered mental status, acute, bipolar decompensation secondary to medication non adherence 2. Left frontal lobe wedge-shaped hypoattenuation, which may be due to the above mentioned glioma 3, HX Glioma as per history records unfortunately were not available, unlikely to have an effect on his personality given the small size 4. TITI 5. Psychomotor agitation 6. POST Music[employer] CPK of no clinical significance, status post IV fluid hydration Brief Hospital Course Allergies Allergies Coded Allergies Type Severity Reaction Last Updated Verified No Known Drug Allergies 12/01/19 No Vital Signs Vital Signs Date Time Temp Pulse Resp B/P (MAP) Pulse Ox O2 Delivery O2 Flow Rate FiO2 12/04/19 15:09 97.6 82 18 138/80 (99) 98 Room Air 97.6 Lab Results Laboratory Tests Test 12/03/19 04:00 Sodium Level 141 mmol/L (136-145) Potassium Level 3.9 mmol/L (3.5-5.1) Chloride Level 107 mmol/L (98-107) Carbon Dioxide Level 29 mmol/L (21-32) Anion Gap 5 (6-14) Blood Urea Nitrogen 13 mg/dL (8-26) Creatinine 1.0 mg/dL (0.7-1.3) Estimated GFR (Cockcroft-Gault) 87.7 Glucose Level 87 mg/dL (70-99) Calcium Level 8.4 mg/dL (8.5-10.1) Creatine Kinase 305 U/L (39-308) Brief Hospital Course History and Physical Date of Admission Date of Admission DATE: 12/01/19 TIME: 13:27 Identification/Chief Complaint Chief Complaint SEEN I9N ER WITH chief complaint of combativeness. Patient was causing a disturbance outside of the [facility] [employer] in police custody and became acting erratic and combative. Patient had to be restrained by police and put in handcuffs. History and physical are limited to due to altered mental status. Patient is oriented x3 but has a very bizarre affect and will answer questions appropriately and is agitated. Patient was tased with a lakia in the right buttocks that was removed prior to arrival. CT HEAD CONCERNING FOR Glioma , neurology and psych consulted Patient seen in consultation by neurology and by psychiatry unfortunately the patient had a outburst of anger when Dr. Alba from psychiatry evaluated him. Dr. Pereira recommendations were as follows Left frontal glioma, this is very small and unlikely to contribute to major personality changes. 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 Rhabdomyolysis, CPK 305 today Plan Radiology to burn a CD so patient can have his main physician compare. Ask for images clouded for our radiologist to compare Otherwise, as per psychiatry. Neurology will see as needed rest of hospital stay Dr. warner the recommendations were as follows Diagnosis: 1. Acute delirium, likely hypoactive hyperactive delusions, multifactorial 2. Unspecified psychosis. 3. Bipolar mood disorder by history 4. Rule out bipolar mood disorder due to general medical condition. 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 Apparently, he appeared evasive to the typewriter ribbon winder initially, demonstrated agitation and brief meltdown when confronted by typewriter ribbon winder. Given, history of combativeness, confrontation with police, recent demonstration of impulsivity, profanity, and agitation he is at risk of self-harm or harm to others. It is reasonable to keep patient on one-on-one observation until safety is established. And patient is a stabilized. In case of, patient request for AMA, he needs to be assessed thoroughly for safety and legal issues. He needs medication management for stab ility of mental health. Plan: Haldol 5 mg twice a day for mood stability. Continue Ativan as is. Haldol 5 mg every 6 hours as needed for agitation and breakthrough anxiety. Ativan 1 mg every 6 hours with Haldol for agitation and breakthrough anxiety. Risk, benefits, alternatives of the treatment are explained. The patient continued to have an uneventful hospital stay and mostly sleeping throughout the day's, patient on today's date was seen by Dr. Alba mid afternoon after he was threatening to leave AGAINST MEDICAL ADVICE. The patient was assessed by Dr. Alba and deems him of no harm to self and safe if he wants to sign himself AGAINST MEDICAL ADVICE. Unfortunately we could not prevent this from happening and most likely the patient will come back in the near future. Discharge Information Condition at Discharge: Improved Follow Up: Weeks Disposition/Orders: Other (Left AGAINST MEDICAL ADVICE) Scheduled Sertraline Hcl (Zoloft) 100 Mg Tablet, 1 TAB PO DAILY for depression, #30 Ref 5 (Reported) Entered as Reported by: Rosalie Munoz on 12/02/191523 Last Taken: 100 mg PO daily on Unknown Date & Time Last Action: Reviewed on 12/02/191523 by Rosalie Munoz Scheduled PRN Hydroxyzine Pamoate (Vistaril) 50 Mg Capsule, 50 MG PO TID PRN for ANXIETY / AGITATION, (Reported) Entered as Reported by: Rosalie Munoz on 12/02/191520 Last Taken: 50 mg PO TID PRN on Unknown Date & Time Last Action: Reviewed on 12/02/191523 by Rosalie Munoz Justicifation of Admission Dx: Justifications for Admission: Justification of Admission Dx: Yes Sepsis: Altered Mental Status EDISON SIMMS MD Dec 04, 2019 16:09
--- NOTE | 2019-12-04 16:37 | PDOC ---
F/U PHYSCH PROG NOTE Subjective: Gentleman seen for routine follow-up. Information is obtained from nursing staff. Interval history is insignificant for agitation, suicidality, homicidality, or psychosis. No breakdown reported. He is quiet and calm wanting to go to sober living house where he stayed before. Denies suicidal or homicidal thoughts. Denies auditory or visual hallucinations. No evidence of carina or hypomania. He is willing to give up on substances and wanting to seek treatment. Legal grounds or not sufficient to hold patient involuntarily. He can leave hospital AGAINST MEDICAL ADVICE. Denies access to firearms. Objective: 14 point review of system is otherwise negative except for as mentioned in subjective history. Vital Signs: Vital Signs Date Time Temp Pulse Resp B/P (MAP) Pulse Ox O2 Delivery O2 Flow Rate FiO2 12/04/19 15:09 97.6 82 18 138/80 (99) 98 Room Air 97.6 Medications: Current Medications Medications (Trade) Dose Ordered Sig/Trinh Start Time Stop Time Status Last Admin Dose Admin Acetaminophen (Tylenol Supp) 650 mg PRN Q4HRS PRN 12/01/19 15:30 Acetaminophen (Tylenol) 650 mg PRN Q4HRS PRN 12/01/19 15:30 Al Hydroxide/Mg Hydroxide (Mylanta Plus Xs) 30 ml PRN DAILY PRN 12/01/19 15:30 Albuterol Sulfate (Ventolin Neb Soln) 2.5 mg PRN Q4HRS PRN 12/01/19 15:30 Clonidine HCl (Catapres) 0.1 mg PRN Q6HRS PRN 12/01/19 15:30 Diphenhydramine HCl (Benadryl) 50 mg STK-MED ONCE 12/01/19 11:43 12/01/19 11:44 DC Docusate Sodium (Colace) 100 mg PRN BID PRN 12/01/19 15:30 Enoxaparin Sodium (Lovenox 40mg Syringe) 40 mg Q24H 12/01/19 15:30 12/03/19 17:22 40 MG Guaifenesin (Robitussin) 200 mg PRN Q4HRS PRN 12/01/19 15:30 Haloperidol (Haldol) 5 mg PRN Q6HRS PRN 12/02/19 16:15 12/03/19 17:23 5 MG Haloperidol Lactate (Haldol Inj) 5 mg 1X ONCE 12/01/19 11:45 12/01/19 12:08 DC 12/01/19 11:55 5 MG Ketorolac Tromethamine (Toradol 30mg Vial) 30 mg 1X ONCE 12/02/19 07:30 12/02/19 07:31 DC 12/02/19 08:25 30 MG Lorazepam (Ativan Inj) 2 mg PRN Q4HRS PRN 12/01/19 15:30 Lorazepam (Ativan) 1 mg PRN Q6HRS PRN 12/02/19 16:15 12/03/19 17:23 1 MG Meloxicam (Mobic) 7.5 mg BID PRN 12/02/19 18:15 12/03/19 23:05 7.5 MG Methocarbamol (Robaxin) 1,000 mg PRN Q8HRS PRN 12/02/19 07:30 12/04/19 05:21 1,000 MG Nicotine (Nicoderm Cq 21mg) 1 patch PRN DAILY PRN 12/02/19 13:30 12/04/19 09:41 1 PATCH Ondansetron HCl (Zofran) 4 mg PRN Q4HRS PRN 12/01/19 15:30 12/02/19 16:26 DC Sodium Monofluorophosphate (Fleet Adult) 133 ml PRN DAILY PRN 12/01/19 15:30 Sodium Chloride 1,000 ml @ 100 mls/hr Q10H 12/02/19 13:15 12/04/19 05:23 100 MLS/HR Sodium Chloride (Normal Saline Flush) 3 ml QSHIFT PRN 12/01/19 15:30 Zolpidem Tartrate (Ambien) 5 mg 1X PRN 12/02/19 22:30 12/02/19 23:00 DC 12/02/19 22:38 5 MG Physical Exam: Mental Status Exam: gentleman, appears as a stated age, fairly groomed, fairly nourished Quite and calm Oriented to all spheres Thought processes coherent and goal Denies auditory or visual hallucinations. No abnormal perception noted. Denies suicidal or homicidal thoughts. Mood is fine Affect is slightly restricted Impulse control is fair fair Insight is fair Judgment is fair Attention span and concentration fair Recent remote memory intact Physical Exam: Refer to Physician's note. FOREST MANAGER: No focal deficit MSK: No EPS, TDK, or abnormal involuntary movements Diagnosis: 1. Acute delirium, likely hypoactive hyperactive delusions, multifactorial 2. Unspecified psychosis. 3. Bipolar mood disorder by history 4. Rule out bipolar mood disorder due to general medical condition. 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 Apparently, he appeared evasive to the service writer advisor initially, demonstrated agitation and brief meltdown when confronted by service writer advisor. Given, history of combativeness, confrontation with police, recent demonstration of impulsivity, profanity, and agitation he is at risk of self-harm or harm to others. It is reasonable to keep patient on one-on-one observation until safety is established. And patient is a stabilized. In case of, patient request for AMA, he needs to be assessed thoroughly for safety and legal issues. He needs medication management for stability of mental health. Plan: Interval history is negative for any major emotional or behavioral breakdown. Negative for any psychosis or suicidal or homicidal thoughts intent or plan. He is not an imminent danger to self or others. He has forward thinking and wants to go to sober living house to maintain his sobriety on substances and rehab. He has been there before. Denies access to firearms. No legal grounds are available to hold patient involuntarily. Patient cannot leave AMA. Risk, benefits, alternatives of the treatment are explained. Thank you for involving inpatient care for NEEL MARQUIS MD Dec 04, 2019 16:37
== END 2019-12-04 16:03 | disposition left against medical advice (07) | DRG 54 ==
LOC: ER 11:23 → 4 NORTH 13:31
PROVIDERS: ADMIT Family Medicine; ATTEND Family Medicine
DX: C71.9 Malignant neoplasm of brain, unspecified (principal); G93.6 Cerebral edema; N17.9 Acute kidney failure, unspecified; M62.82 Rhabdomyolysis; F22 Delusional disorders; F31.9 Bipolar disorder, unspecified; Z82.49 Family history of ischemic heart disease and other diseases of the circulatory system; Z85.841 Personal history of malignant neoplasm of brain; Z87.891 Personal history of nicotine dependence; Z91.14 Patient's other noncompliance with medication regimen; F12.90 Cannabis use, unspecified, uncomplicated; F41.9 Anxiety disorder, unspecified; Z20.828 Contact with and (suspected) exposure to other viral communicable diseases; Z53.29 Procedure and treatment not carried out because of patient's decision for other reasons; Z79.899 Other long term (current) drug therapy; F25.9 Schizoaffective disorder, unspecified; F06.30 Mood disorder due to known physiological condition, unspecified
CPT/HCPCS: 36415; 70450; 71045; 80048; 80053; 80307; 80329; 81001; 82550; 84443; 84484; 85025; 87040; 87086; 93005; 94640; 94760; 96365; 96366; 96372; G0480; J1200; J1630; J1650; J1885; J2060; J7030; 99285-25; G0378; U0003-CS